=== PATIENT | female | born 1960 | race Caucasian/White ===

== ENCOUNTER 2021-04-30 19:22 | Emergency (ER) | payer BC ==
[~2021-04-30] VITALS: Ht 160 cm; Wt 63.0 kg
[2021-04-30 19:48] VITALS: BP 134/83
--- OUTSIDE RECORDS SUMMARY | 2021-04-30 21:37 | CCD ---
Author [facility] Organization [facility] Address [address], [place] [id number] Phone Care Team Providers Care Long Lines Operator Name Role Phone Hilton Grissom Unavailable Allergies, Adverse Reactions, Alerts Codeine Phosphate Reaction: "freaked out" 11/15/2010 Tegretol Reaction: increased confusion 09/07/2020 Medications * Continue: * Lynette DAMON * betamethasone dipropionate 0.05 % topical cream , Apply 1 dose topically Twice a day 03/18/2019 * Hilton Grissom MD * metoprolol tartrate 25 mg tablet , Take 1 tablet orally daily if needed 06/04/2019 * Kelechi DAMON * LevoxyL 100 mcg tablet , Take 1 tablet orally every day 01/06/2021 * Discontinued: * Blanche Villanueva RN * Calcium 500 + D 500 mg (1,250 mg)-200 unit tablet 09/09/2014 * Motrin 800 mg tablet 09/09/2014 * Missy Rico RN * Vitamin B-12 1,000 mcg tablet 09/07/2020 * Vitamin D3 25 mcg (1,000 unit) capsule 09/07/2020 * Olivia 180 mg tablet 09/14/2012 * Nasacort AQ 55 mcg nasal spray aerosol 07/07/2014 * Proventil HFA 90 mcg/actuation aerosol inhaler 01/12/2018 * omeprazole 20 mg capsule,delayed release 09/07/2020 * Nicotrol NS 10 mg/mL nasal spray 01/12/2018 * Chantix Continuing Month Box 1 mg tablet 01/12/2018 * amoxicillin 875 mg tablet 01/12/2018 * cephALEXin 250 mg capsule 09/07/2020 * TEGretol XR 200 mg tablet,extended release 09/07/2020 * * LevoxyL 112 mcg tablet 01/23/2013 * predniSONE 10 mg tablet , Take 3 tablets orally every day as directed 08/13/2013 * predniSONE 10 mg tablet , Take 3 tablets orally every day 11/09/2013 * triamcinolone acetonide 55 mcg nasal spray aerosol 09/20/2016 * Tamiflu 75 mg capsule 09/20/2016 * Henrietta Sandy * Advair Diskus 250 mcg-50 mcg/dose powder for inhalation 06/01/2020 * Zoloft 25 mg tablet 06/01/2020 * Caridad Nunes MD * amoxicillin 875 mg-potassium clavulanate 125 mg tablet , Take 1 tablet orally Every 12 hours 07/06/2011 * Hilton Grissom MD * LevoxyL 100 mcg tablet , Take 1 tablet orally every day 08/09/2014 * LevoxyL 100 mcg tablet 06/22/2017 * Lynette Weems RPA-C * LevoxyL 125 mcg tablet 05/20/2019 * ROSEY CASPER * mupirocin 2 % topical ointment 01/31/2020 * Kelechi Hassan RPA-C * LevoxyL 112 mcg tablet 01/06/2021 * Pre-existing: * Motrin IB 200 mg tablet , Take 3 tablet orally q am * Multivitamin Gummies 200 mcg chewable tablet Problems Addressed During This Encounter Family history of malignant neoplasm of breast (Z80.3) 04/27/2015 Nicotine dependence, unspecified, uncomp licated (F17.200) 09/20/2016 Other benign neoplasm of skin, unspecifi ed (D23.9) 01/12/2018 Supraventricular tachycardia (I47.1) Other amnesia (R41.3) 01/16/2020 Acute cystitis without hematuria (N30.00 ) 05/07/2020 Dermatitis, unspecified (L30.9) 09/07/2020 Pre-existing: Hypothyroidism, unspecified (E03.9) Allergic rhinitis, cause unspecified (477.9) ASTHMA (493.90) Ovarian cyst (620.2) Comments: Biilateral Hives (708.9) Comments: Frequent Hematuria, microscopic (599.72) Comments: Work up 2002 Deficiency of other specified B group vitamins (E53.8) Resolved: Sinusitis, Acute (461.9) 06/22/2017 OTODYNIA (388.70) 06/22/2017 Tobacco use disorder (305.1) 05/07/2020 ABDOMINAL PAIN NOS (789.00) 06/22/2017 HEMATOCHEZIA (578.1) 06/22/2017 CPE adult (V70.0) 06/22/2017 URI (460) 06/22/2017 Acute serous otitis media (381.01) 05/07/2020 Encounter for gynecological examination (general) (routine) without abnormal findings (Z01.419) 05/07/2020 Acute bronchitis, unspecified (J20.9) 06/22/2017 Dyshidrosis [pompholyx] (L30.1) 05/07/2020 Major depressive disorder, single episode, unspecified (F32.9) 05/07/2020 Hypokalemia (E87.6) 05/07/2020 Results TSH,ULTRASENSITIVE @: 0.439 mIU/L 05/23 Foot/ankle neuro exam: peripheral pulse s are palpable 09/20/2016 TSH,ULTRASENSITIVE @: 2.97 mIU/L 017 CHOLESTEROL @: 214 MG/DL 09/26/2016 TRIGLYCERIDE @: 106 MG/DL 09/26/2016 HDL CHOLESTEROL @: 95 MG/DL 09/26/2016 CHOL/HDL RATIO: 2.3 RATIO 09/26/2016 LDL CHOL (CALC): 98 MG/DL 09/26/2016 VITAMIN B12 @: >2000 09/26/2016 SODIUM: 140 mmol/L 09/26/2016 Potassium: 4.6 mmol/L 09/26/2016 CHLORIDE: 104 mmol/L 09/26/2016 CO2: 28 mmol/L 09/26/2016 Anion Gap: 8 mmol/L 09/26/2016 Creatinine: 1.09 MG/DL 09/26/2016 UREA NITROGEN: 22 MG/DL 09/26/2016 BUN/CREAT RATIO: 20.2 RATIO 09/26/2016 Glucose: 93 MG/DL 09/26/2016 CALCIUM: 8.9 MG/DL 09/26/2016 TOTAL PROTEIN: 7.1 g/dL 09/26/2016 Albumin: 4 g/dL 09/26/2016 GLOBULIN: 3.1 g/dL 09/26/2016 ALB/GLOB RATIO: 1.3 RATIO 09/26/2016 ALKALINE PHOSPHATASE: 89 U/L 09/26/2016 BILIRUBIN,TOTAL: 0.3 MG/DL 09/26/2016 AST (SGOT): 14 U/L 09/26/2016 ALT (SGPT): 15 U/L 09/26/2016 GFR : 52 ml/min/1.73m2 09/26/2016 GFR ( AMER): >60 09/26/2016 25 HYDROXY VIT D @: 29 ng/mL 09/26/2016 WBC: 7.8 10*3/uL 09/26/2016 RBC: 4.35 10*6/uL 09/26/2016 HGB: 13.7 g/dL 09/26/2016 HCT: 40.4 % 09/26/2016 MCV: 92.8 fL 09/26/2016 MCH: 31.5 pg 09/26/2016 MCHC: 34 g/dL 09/26/2016 RDW: 13.6 % 09/26/2016 PLT: 315 10*3/uL 09/26/2016 MPV: 7.3 fL 09/26/2016 NEUT %: 36.8 % 09/26/2016 LYMPH %: 36.9 % 09/26/2016 MONO %: 9.1 % 09/26/2016 EOS %: 15.8 % 09/26/2016 BASO %: 1.4 % 09/26/2016 NEUT #: 2.9 10*3/uL 09/26/2016 LYMPH #: 2.9 10*3/uL 09/26/2016 MONO #: 0.7 10*3/uL 09/26/2016 EOS #: 1.2 10*3/uL 09/26/2016 BASO #: 0.1 10*3/uL 09/26/2016 TSH,ULTRASENSITIVE @: 1.13 mIU/L 2016 SODIUM: 142 mmol/L 06/05/2017 Potassium: 3.7 mmol/L 06/05/2017 CHLORIDE: 106 mmol/L 06/05/2017 CO2: 26 mmol/L 06/05/2017 Anion Gap: 10 mmol/L 06/05/2017 UREA NITROGEN: 14 MG/DL 06/05/2017 Creatinine: 1.04 MG/DL 06/05/2017 BUN/CREAT RATIO: 13.5 RATIO 06/05/2017 Glucose: 86 MG/DL 06/05/2017 CALCIUM: 8.5 MG/DL 06/05/2017 TOTAL PROTEIN: 6.8 g/dL 06/05/2017 Albumin: 4 g/dL 06/05/2017 GLOBULIN: 2.8 g/dL 06/05/2017 ALB/GLOB RATIO: 1.4 RATIO 06/05/2017 ALKALINE PHOSPHATASE: 96 U/L 06/05/2017 BILIRUBIN,TOTAL: 0.3 MG/DL 06/05/2017 AST (SGOT): 15 U/L 06/05/2017 ALT (SGPT): 13 U/L 06/05/2017 GFR : 55 ml/min/1.73m2 06/05/2017 GFR ( AMER): >60 06/05/2017 WBC: 6.9 10*3/uL 06/05/2017 RBC: 4.12 10*6/uL 06/05/2017 HGB: 13.1 g/dL 06/05/2017 HCT: 38 % 06/05/2017 MCV: 92.2 fL 06/05/2017 MCH: 31.7 pg 06/05/2017 MCHC: 34.4 g/dL 06/05/2017 RDW: 13.2 % 06/05/2017 PLT: 291 10*3/uL 06/05/2017 MPV: 7.3 fL 06/05/2017 NEUT %: 35.9 % 06/05/2017 LYMPH %: 36.3 % 06/05/2017 MONO %: 8 % 06/05/2017 EOS %: 18.6 % 06/05/2017 BASO %: 1.2 % 06/05/2017 NEUT #: 2.5 10*3/uL 06/05/2017 LYMPH #: 2.5 10*3/uL 06/05/2017 MONO #: 0.5 10*3/uL 06/05/2017 EOS #: 1.3 10*3/uL 06/05/2017 BASO #: 0.1 10*3/uL 06/05/2017 FREE THYROXINE @: 1.46 ng/dL 06/26/2017 TRIIODOTHYRONIN,FREE@: 3 pg/mL 06/26/20 17 VITAMIN B12 @: >2000 06/26/2017 25 HYDROXY VIT D @: 36 ng/mL 06/26/2017 TSH,ULTRASENSITIVE @: 0.158 mIU/L 7/22/ 2019 FREE THYROXINE @: 1.27 ng/dL 01/28/2019 VITAMIN B12 @: >2000 01/28/2019 SODIUM: 139 mmol/L 01/28/2019 Potassium: 3.9 mmol/L 01/28/2019 CHLORIDE: 106 mmol/L 01/28/2019 CO2: 25 mmol/L 01/28/2019 Anion Gap: 8 mmol/L 01/28/2019 UREA NITROGEN: 13 MG/DL 01/28/2019 Creatinine: 1.2 MG/DL 01/28/2019 BUN/CREAT RATIO: 10.8 RATIO 01/28/2019 Glucose: 108 MG/DL 01/28/2019 CALCIUM: 8.7 MG/DL 01/28/2019 TOTAL PROTEIN: 7.1 g/dL 01/28/2019 Albumin: 4.1 g/dL 01/28/2019 GLOBULIN: 3 g/dL 01/28/2019 ALB/GLOB RATIO: 1.4 RATIO 01/28/2019 ALKALINE PHOSPHATASE: 110 U/L 01/28/2019 BILIRUBIN,TOTAL: 0.4 MG/DL 01/28/2019 AST (SGOT): 9 U/L 01/28/2019 ALT (SGPT): 15 U/L 01/28/2019 GFR : 46 ml/min/1.73m2 01/28/2019 GFR ( AMER): 56 ml/min/1.73m2 25 HYDROXY VIT D @: 34 ng/mL 01/28/2019 WBC: 5.4 10*3/uL 01/28/2019 RBC: 4.13 10*6/uL 01/28/2019 HGB: 13.2 g/dL 01/28/2019 HCT: 38.2 % 01/28/2019 MCV: 92.5 fL 01/28/2019 MCH: 31.9 pg 01/28/2019 MCHC: 34.4 g/dL 01/28/2019 RDW: 13.6 % 01/28/2019 PLT: 301 10*3/uL 01/28/2019 MPV: 7.2 fL 01/28/2019 NEUT %: 43 % 01/28/2019 LYMPH %: 40.7 % 01/28/2019 MONO %: 9 % 01/28/2019 EOS %: 6.5 % 01/28/2019 BASO %: 0.8 % 01/28/2019 NEUT #: 2.3 10*3/uL 01/28/2019 LYMPH #: 2.2 10*3/uL 01/28/2019 MONO #: 0.5 10*3/uL 01/28/2019 EOS #: 0.4 10*3/uL 01/28/2019 BASO #: 0 10*3/uL 01/28/2019 TRIIODOTHYRONIN,FREE@: 2.6 pg/mL 019 TSH,ULTRASENSITIVE @: 0.144 mIU/L 2018 FREE THYROXINE @: 1.31 ng/dL 05/13/2019 TRIIODOTHYRONIN,FREE@: 2.4 pg/mL 019 TSH,ULTRASENSITIVE @: 1.11 mIU/L 07/15/19 20 HEMOGLOBIN A1C @: 5.4 % 01/17/2020 EST AVERAGE GLUCOSE: 108 MG/DL 0 Potassium: 3.3 mmol/L 01/17/2020 TSH,ULTRASENSITIVE @: 0.906 mIU/L 2019 SODIUM: 137 mmol/L 01/17/2020 Anion Gap: 9 mmol/L 01/17/2020 CHLORIDE: 102 mmol/L 01/17/2020 CO2: 26 mmol/L 01/17/2020 UREA NITROGEN: 11 MG/DL 01/17/2020 Creatinine: 0.94 MG/DL 01/17/2020 Glucose: 72 MG/DL 01/17/2020 BUN/CREAT RATIO: 11.7 RATIO 01/17/2020 CALCIUM: 8.7 MG/DL 01/17/2020 TOTAL PROTEIN: 6.8 g/dL 01/17/2020 Albumin: 3.7 g/dL 01/17/2020 GLOBULIN: 3.1 g/dL 01/17/2020 ALB/GLOB RATIO: 1.2 RATIO 01/17/2020 ALKALINE PHOSPHATASE: 94 U/L 01/17/2020 BILIRUBIN,TOTAL: 0.4 MG/DL 01/17/2020 AST (SGOT): 16 U/L 01/17/2020 ALT (SGPT): 15 U/L 01/17/2020 GFR : >60 01/17/2020 GFR ( AMER): >60 01/17/2020 WBC: 6.6 10*3/uL 01/17/2020 RBC: 4.22 10*6/uL 01/17/2020 HGB: 13.4 g/dL 01/17/2020 HCT: 39.7 % 01/17/2020 RDW: 13.1 % 01/17/2020 MCHC: 33.7 g/dL 01/17/2020 MCH: 31.7 pg 01/17/2020 MCV: 94.1 fL 01/17/2020 PLT: 331 10*3/uL 01/17/2020 MPV: 7.5 fL 01/17/2020 NEUT %: 45.1 % 01/17/2020 LYMPH %: 42.5 % 01/17/2020 MONO %: 6.6 % 01/17/2020 EOS %: 5 % 01/17/2020 BASO %: 0.8 % 01/17/2020 NEUT #: 3 10*3/uL 01/17/2020 LYMPH #: 2.8 10*3/uL 01/17/2020 MONO #: 0.4 10*3/uL 01/17/2020 EOS #: 0.3 10*3/uL 01/17/2020 TSH,ULTRASENSITIVE @: 0.696 mIU/L 2019 BASO #: 0.1 10*3/uL 01/17/2020 Potassium: 3.7 mmol/L 01/17/2020 SODIUM: 138 mmol/L 01/17/2020 CHLORIDE: 103 mmol/L 01/17/2020 Creatinine: 1.07 MG/DL 01/17/2020 Anion Gap: 12 mmol/L 01/17/2020 CO2: 23 mmol/L 01/17/2020 UREA NITROGEN: 11 MG/DL 01/17/2020 BUN/CREAT RATIO: 10.3 RATIO 01/17/2020 Glucose: 103 MG/DL 01/17/2020 CALCIUM: 9.1 MG/DL 01/17/2020 TOTAL PROTEIN: 6.9 g/dL 01/17/2020 Albumin: 3.8 g/dL 01/17/2020 GLOBULIN: 3.1 g/dL 01/17/2020 ALB/GLOB RATIO: 1.2 RATIO 01/17/2020 ALKALINE PHOSPHATASE: 94 U/L 01/17/2020 BILIRUBIN,TOTAL: 0.4 MG/DL 01/17/2020 AST (SGOT): 17 U/L 01/17/2020 ALT (SGPT): 15 U/L 01/17/2020 GFR : 53 ml/min/1.73m2 01/17/2020 GFR ( AMER): >60 01/17/2020 VITAMIN B12 @: >2000 01/17/2020 LYME IGM/IGG AB @: NEGATIVE 01/31/2020 COVID IGG SEROLOGY @: NEGATIVE 0 SARS COV2 SOURCE: NASOPHARYNGEAL 020 TSH,ULTRASENSITIVE @: 0.154 mIU/L 2020 Potassium: 3.6 mmol/L 01/05/2021 SODIUM: 139 mmol/L 01/05/2021 CHLORIDE: 104 mmol/L 01/05/2021 CO2: 24 mmol/L 01/05/2021 Anion Gap: 11 mmol/L 01/05/2021 UREA NITROGEN: 15 MG/DL 01/05/2021 Creatinine: 0.82 MG/DL 01/05/2021 BUN/CREAT RATIO: 18.3 RATIO 01/05/2021 Glucose: 98 MG/DL 01/05/2021 CALCIUM: 9.4 MG/DL 01/05/2021 TOTAL PROTEIN: 7.8 g/dL 01/05/2021 Albumin: 4.4 g/dL 01/05/2021 GLOBULIN: 3.4 g/dL 01/05/2021 ALB/GLOB RATIO: 1.3 RATIO 01/05/2021 ALKALINE PHOSPHATASE: 77 U/L 01/05/2021 BILIRUBIN,TOTAL: 0.5 MG/DL 01/05/2021 AST (SGOT): 12 U/L 01/05/2021 ALT (SGPT): 16 U/L 01/05/2021 GFR : >60 01/05/2021 GFR ( AMER): >60 01/05/2021 VITAMIN B12 @: 637 pg/mL 01/05/2021 WBC: 6.6 10*3/uL 01/05/2021 RBC: 4.59 10*6/uL 01/05/2021 HGB: 14.6 g/dL 01/05/2021 HCT: 43.5 % 01/05/2021 MCV: 94.8 fL 01/05/2021 MCH: 31.8 pg 01/05/2021 MCHC: 33.6 g/dL 01/05/2021 RDW: 13.2 % 01/05/2021 PLT: 319 10*3/uL 01/05/2021 MPV: 7.6 fL 01/05/2021 NEUT %: 52.9 % 01/05/2021 LYMPH %: 30.9 % 01/05/2021 MONO %: 6.4 % 01/05/2021 EOS %: 8.9 % 01/05/2021 BASO %: 0.9 % 01/05/2021 NEUT #: 3.5 10*3/uL 01/05/2021 LYMPH #: 2 10*3/uL 01/05/2021 MONO #: 0.4 10*3/uL 01/05/2021 EOS #: 0.6 10*3/uL 01/05/2021 BASO #: 0.1 10*3/uL 01/05/2021 Procedures Performed and Ordered Today * Vaccine registry consented 09/20/2016 * HIV Test Offered 09/20/2016 * Hepatitis C test offered 09/20/2016 * Smoke/tobacco counseling 3-10 09/20/2016 * Smoke/tobacco counseling 3-10 12/16/2016 * Colonoscopy MD Jamari/repeat 10 yrs 10/09/2017 * HIE Consented YES 01/12/2018 * * Immunization : Tdap Adacel 09/20/2016 Vital signs Body Temperature: Heart Rate: Respiratory Rate: BP: Height: Weight: BMI: 97.6F 09/07/2020 80 beats per minute 16 breaths per minute 09/20/2016 120/64 mmHg 09/07/2020 5ft, 2in 09/07/2020 147lbs 09/07/2020 26.455 09/07/2020 Immunizations FLU SHOT >3YO (Fluzone) 03/31/2010 FLU SHOT >3YO (Fluzone) 04/28/2008 FLU SHOT >3YO (Fluzone) 06/09/2006 Novel [id number], NASAL 2008 FLU SHOT >3YO (Fluzone) 04/13/2011 FLU SHOT >3YO (Fluzone) 04/25/2007 FLU QUAD 0.5ml multi dose VIAL 04/27 Tdap Adacel 09/20/2016 Tdap (ADULT) >6 09/20/2016 Td Adult 06/21/1994 Tetanus and Diphtheria Toxoids, Adsorbed 09/26/2005 DTaP 1962 DTaP 01/28/1963 DTaP 03/06/1963 DTaP 02/25/1964 DTaP 08/30/1966 Measles Immunization 08/24/1965 Mumps Immunization 09/02/1968 Polio -Oral ORIMUNE 1962 Polio -Oral ORIMUNE 01/28/1963 Polio -Oral ORIMUNE 07/30/1963 Polio -Oral ORIMUNE 02/25/1964 Polio -Oral ORIMUNE 04/28/1964 Polio -Oral ORIMUNE 11/10/1966 Polio -Oral ORIMUNE 09/08/1966 Measles Immunization 09/10/1976 Rubella Immunization 07/28/1968 RUBELLA IGG AB @ 03/01/1989 Td Adult 01/25/1980 Td Adult 11/14/1972 Flu QUAD PF 06/21/2016 FLUCELVAX ccIIV4 05/01/2017 Pneumococcal Adult or Imuno. 03/25/20 Flu QUAD PF 03/25/2018 FLUCELVAX ccIIV4 05/21/2019 FLUCELVAX ccIIV4 03/14/2020 Social History Smoking Status: Current every day smoker . 09/07/2020 Started using tobacco: 1979 Reason for Referral Functional Status Plan of Treatment Appointments [facility] ed: May 102002, 4:30 PM, FRANTZ Hannah Monday, May 09, 2005, 3:45 PM, FRANTZ Hannah Wednesday, August 29, 2007, 8:30 AM, Hilton Grissom MD Wednesday, September 12, 2007, 1:30 PM, Hilton Grissom MD Monday, November 19, 2007, 3:30 PM, Hilton Grissom MD Wednesday, December 05, 2007, 9:30 AM, Caridad Nunes MD Friday, December 21, 2007, 11:00 AM, Hilton Grissom MD Wednesday, March 19, 2008, 5:00 PM, Hilton Grissom MD Monday, April 28, 2008, 4:45 PM, FRANTZ Hannah Tuesday, July 08, 2008, 5:00 PM, Norman Perez MD Monday, July 28, 2008, 10:00 AM, Caridad Nunes MD Friday, August 15, 2008, 2:00 PM, Hilton Grissom MD August, 10:30 AM, Hilton Grissom MD Monday, December 08, 2008, 5:00 PM, Hilton Grissom MD Monday, December 22, 2008, 1:30 PM, Hilton Grissom MD March, 4:30 PM, Hilton Grissom MD Monday, June 22, 2009, 10:30 AM, Norman Perez MD , June 25, 2009, 10:00 AM, Hilton Grissom MD Wednesday, July 15, 2009, 1:45 PM, OLD zNURSE Friday, October 23, 2009, 10:15 AM, Hilton Grissom MD December, 11:00 AM, Hilton Grissom MD Wednesday, March 31, 2010, 3:30 PM, Hilton Grissom MD Wednesday, June 09, 2010, 2:15 PM, Hilton Grissom MD , October 07, 2010, 9:30 AM, Caridad Nunes MD Monday, November 15, 2010, 3:00 PM, Hilton Grissom MD Wednesday, April 13, 2011, 2:15 PM, OLD zNURSE Monday, June 06, 2011, 9:30 AM, Caridad Nunes MD , September 15, 2011, 1:30 PM, Hilton Grissom MD Friday, September 14, 2012, 10:00 AM, Norman Perez MD Monday, November 12, 2012, 3:00 PM, Hilton Grissom MD Friday, August 09, 2013, 1:30 PM, Norman Perez MD Wednesday, November 06, 2013, 11:00 AM, Norman Perez MD Monday, May 19, 2014, 5:30 PM, Hilton Grissom MD Tuesday, September 09, 2014, 10:45 AM, [facility] Monday, April 27, 2015, 5:00 PM, Hilton Grissom MD Tuesday, September 20, 2016, 1:30 PM, Hilton Grissom MD Tuesday, September 20, 2016, 1:30 PM, Hilton Grissom MD Tuesday, September 20, 2016, 2:00 PM, Hilton Grissom MD Friday, December 16, 2016, 10:30 AM, Hilton Grissom MD June, 1:30 PM, Hilton Grissom MD Friday, January 12, 2018, 11:00 AM, Hilton Grissom MD Monday, January 28, 2019, 1:30 PM, Kelechi MACEDO Monday, March 18, 2019, 1:30 PM, Kelechi MACEDO Tuesday, June 04, 2019, 3:00 PM, Hilton Grissom MD January, 3:45 PM, Hilton Grissom MD , January 16, 2020, 5:30 PM, Hilton Grissom MD Friday, January 17, 2020, 10:45 AM, Friday, January 31, 2020, 11:00 AM, Kelechi MACEDO April, 3:00 PM, Lynette MACEDO May, 1:30 PM, Hilton Grissom MD Monday, June 01, 2020, 10:00 AM, Kelechi MACEDO Monday, September 07, 2020, 1:30 PM, Lynette MACEDO Payers Insurance Policy Type Po licy ID Relation Subscriber Expi ration BLUEPOINT/BLUE PREFERRED/ONPOINT [employer] [id number] ALBA PAYAN NELA 10/07/2011 [employer]UE CROSS BLUE [employer]IELD [place] [employer] [id number] Self DERRICK ROPER 07/15/2004 BLUE CROSS BLUE SHIELD [place] [employer] [id number] Self DERRICK ROPER 10/22/2004 BLUE CROSS BLUE SHI[employer] [place] [employer] [id number] Self DERRICK ROPER 07/09/2008 BLUEPOINT/BLUE PREFERRED/ONPOINT [employer] [id number] ALBA PAYAN NELA 07/09/2014 BLUE CROSS BLUE SHIELD [place] [employer] [id number] ALBA CE NELA [employer] Commercial [employer] [id number] ALAN NELA 07/09 Encounters Office/Outpatient Vi sit, Est 09/07/2020 Office Visit - Level 3 06/01/2020 Office Visit - Level 3 05/21/2020 Diagnoses Other amnesia Office/Outpatient Vi sit, Est 05/19/2020 Diagnoses Other amnesia Office Visit - Level 3 05/07/2020 Office/Outpatient Vi sit, Est 01/31/2020 Office/Outpatient Vi sit, Est 01/16/2020 Diagnoses Other amnesia Deficiency of other specified B group vitamins Office Visit - Level 3 01/09/2020 Diagnoses Major depressive disorder, single episode, unspecified Office/Outpatient Vi sit, Est 06/04/2019 Diagnoses Supraventricular tachycardia Hypothyroidism, unspecified Office Visit - Level 3 03/18/2019 Office Visit - Level 3 01/28/2019 Office/Outpatient Vi sit, Est 01/12/2018 Diagnoses Other benign neoplasm of skin, unspecified Office Visit - Level 3 06/22/2017 Diagnoses Hypothyroidism, unspecified Deficiency of other specified B group vitamins Office Visit - Level 3 12/16/2016 Diagnoses Acute bronchitis, unspecified Preventive Visit, Es t, 40-64 09/20/2016 Diagnoses Nicotine dependence, unspecified, uncomplicated Encounter for gynecological examination (general) (routine) without abnormal findings Office/Outpatient Vi sit, Est 04/27/2015 Diagnoses Family history of malignant neoplasm of breast Hypothyroidism, unspecified Office Visit - Level 3 11/06/2013 Office Visit - Level 3 08/09/2013 Preventive Visit, Es t, 40-64 11/12/2012 Office Visit - Level 3 09/14/2012 Office/Outpatient Vi sit, Est 09/15/2011 Office Visit - Level 3 06/06/2011
--- OUTSIDE RECORDS SUMMARY | 2021-04-30 21:38 | CCD ---
Author Author [facility] Organization [facility] Address Unknown Phone Unavailable Care Team Providers Care Casino Cage Supervisor Name Role Phone ESTHER HAAS MD Unavailable Unavailable ESTHER HAAS MD Unavailable Unavailable ESTHER HAAS MD Unavailable Unavailable ESTHER HAAS MD Unavailable Unavailable ESTHER HAAS MD Unavailable Unavailable ESTHER HAAS MD Unavailable Unavailable ESTHER HAAS MD Unavailable Unavailable ESTHER HAAS MD Unavailable Unavailable ESTHER HAAS MD Unavailable Unavailable ESTHER HAAS MD Unavailable Unavailable ESTHER HAAS MD Unavailable Unavailable ESTHER HAAS MD Unavailable Unavailable ESTHER HAAS MD Unavailable Unavailable ESTHER HAAS MD Unavailable Unavailable ESTHER HAAS MD Unavailable Unavailable ESTHER HAAS MD Unavailable Unavailable ESTHER HAAS MD Unavailable Unavailable ESTHER HAAS MD Unavailable Unavailable ESTHER HAAS MD Unavailable Unavailable ESTHER HAAS MD Unavailable Unavailable ESTHER HAAS MD Unavailable Unavailable ESTHER HAAS MD Unavailable Unavailable ESTHER HAAS MD Unavailable Unavailable ESTHER HAAS MD Unavailable Unavailable ESTHER HAAS MD Unavailable Unavailable ESTHER HAAS MD Unavailable Unavailable ESTHER HAAS MD Unavailable Unavailable ESTHER HAAS MD Unavailable Unavailable ESTHER HAAS MD Unavailable Unavailable ESTHER HAAS MD Unavailable Unavailable ESTHER HAAS MD Unavailable Unavailable ESTHER HAAS MD Unavailable Unavailable ESTHER HAAS MD Unavailable Unavailable HAAS, ESTHER MD Unavailable Unavailable HAAS, ESTHER MD Unavailable Unavailable HAAS, ESTHER MD Unavailable Unavailable HAAS, ESTHER MD Unavailable Unavailable HAAS, ESTHER MD Unavailable Unavailable HAAS, ESTHER MD Unavailable Unavailable HAAS, ESTHER MD Unavailable Unavailable HAAS, ESTHER MD Unavailable Unavailable HAAS, ESTHER MD Unavailable Unavailable HAAS, ESTHER MD Unavailable Unavailable HAAS, ESTHER MD Unavailable Unavailable HAAS, ESTHER MD Unavailable Unavailable HAAS, ESTHER MD Unavailable Unavailable HAAS, ESTHER MD Unavailable Unavailable HAAS, ESTHER MD Unavailable Unavailable HAAS, ESTHER MD Unavailable Unavailable HAAS, ESTHER MD Unavailable Unavailable HAAS, ESTHER MD Unavailable Unavailable HAAS, ESTHER MD Unavailable Unavailable HAAS, ESTHER MD Unavailable Unavailable HAAS, ESTHER MD Unavailable Unavailable HAAS, ESTHER MD Unavailable Unavailable HAAS, ESTHER MD Unavailable Unavailable HAAS, ESTHER MD Unavailable Unavailable HAAS, ESTHER MD Unavailable Unavailable HAAS, ESTHER MD Unavailable Unavailable HAAS, ESTHER MD Unavailable Unavailable HAAS, ESTHER MD Unavailable Unavailable HAAS, ESTHER MD Unavailable Unavailable HAAS, ESTHER MD Unavailable Unavailable HAAS, ESTHER MD Unavailable Unavailable HAAS, ESTHER MD Unavailable Unavailable HAAS, ESTHER MD Unavailable Unavailable HAAS, ESTHER MD Unavailable Unavailable HAAS, ESTHER MD Unavailable Unavailable HAAS, ESTHER MD Unavailable Unavailable HAAS, ESTHER MD Unavailable Unavailable HAAS, ESTHER MD Unavailable Unavailable HAAS, ESTHER MD Unavailable Unavailable HAAS, ESTHER MD Unavailable Unavailable HAAS, ESTHER MD Unavailable Unavailable HAAS, ESTHER MD Unavailable Unavailable HAAS, ESTHER MD Unavailable Unavailable HAAS, ESTHER MD Unavailable Unavailable DELCID, L FELIX RPA-C Unavailable Unavailable DELCID, L FELIX RPA-C Unavailable Unavailable DELCID, L FELIX RPA-C Unavailable Unavailable DELCID, L FELIX RPA-C Unavailable Unavailable DELCID, L FELIX RPA-C Unavailable Unavailable DELCID, L FELIX RPA-C Unavailable Unavailable DELCID, L FELIX RPA-C Unavailable Unavailable DELCID, L FELIX RPA-C Unavailable Unavailable DELCID, L FELIX RPA-C Unavailable Unavailable DELCID, L FELIX RPA-C Unavailable Unavailable DELCID, L FELIX RPA-C Unavailable Unavailable DELCID, L FELIX RPA-C Unavailable Unavailable DELCID, L FELIX RPA-C Unavailable Unavailable DELCID, L FELIX RPA-C Unavailable Unavailable DELCID, L FELIX RPA-C Unavailable Unavailable DELCID, L FELIX RPA-C Unavailable Unavailable DELCID, L FELIX RPA-C Unavailable Unavailable DELCID, L FELIX RPA-C Unavailable Unavailable DELCID, L FELIX RPA-C Unavailable Unavailable FARHANA, L FELIX RPA-C Unavailable Unavailable DELCID, L FELIX RPA-C Unavailable Unavailable DELCID, L FELIX RPA-C Unavailable Unavailable DELCID, L FELIX RPA-C Unavailable Unavailable Wood, Lynette PA Unavailable Unavailable Wood, Lynette PA Unavailable Unavailable Wood, Lynette PA Unavailable Unavailable Wood, Lynette PA Unavailable Unavailable Wood, Lynette PA Unavailable Unavailable Wood, Lynette PA Unavailable Unavailable Wood, Lynette PA Unavailable Unavailable Wood, Lynette PA Unavailable Unavailable Wood, Lynette PA Unavailable Unavailable Wood, Lynette PA Unavailable Unavailable Wood, Lynette PA Unavailable Unavailable Wood, Lynette PA Unavailable Unavailable Wood, Lynette PA Unavailable Unavailable Wood, Lynette PA Unavailable Unavailable Wood, Lynette PA Unavailable Unavailable Wood, Lynette PA Unavailable Unavailable Wood, Lynette PA Unavailable Unavailable Wood, Lynette PA Unavailable Unavailable Wood, Lynette PA Unavailable Unavailable Wood, Lynette PA Unavailable Unavailable Wood, Lynette PA Unavailable Unavailable Wood, Lynette PA Unavailable Unavailable Wood, Lynette PA Unavailable Unavailable Wood, Lynette PA Unavailable Unavailable Wood, Lynette PA Unavailable Unavailable Wood, Lynette PA Unavailable Unavailable Wood, Lynette PA Unavailable Unavailable Wood, Lynette PA Unavailable Unavailable Wood, Lynette PA Unavailable Unavailable Wood, Lynette PA Unavailable Unavailable Wood, Lynette PA Unavailable Unavailable Wood, Lynette PA Unavailable Unavailable Wood, Lynette PA Unavailable Unavailable Wood, Lynette PA Unavailable Unavailable Wood, Lynette PA Unavailable Unavailable Wood, Lynette PA Unavailable Unavailable Wood, Lynette PA Unavailable Unavailable Wood, Lynette PA Unavailable Unavailable Wood, Lynette PA Unavailable Unavailable Wood, Lynette PA Unavailable Unavailable Wood, Lynette PA Unavailable Unavailable Wood, Lynette PA Unavailable Unavailable Wood, Lynette PA Unavailable Unavailable Wood, Lynette PA Unavailable Unavailable Wood, Lynette PA Unavailable Unavailable Wood, Lynette PA Unavailable Unavailable Wood, Lynette PA Unavailable Unavailable Wood, Lynette PA Unavailable Unavailable Wood, Lynette PA Unavailable Unavailable Mo, Kelechi PA Unavailable Unavailable Mo, Kelechi PA Unavailable Unavailable Mo, Kelechi PA Unavailable Unavailable Mo, Kelechi PA Unavailable Unavailable Mo, Kelechi PA Unavailable Unavailable Mo, Kelechi PA Unavailable Unavailable Mo, Kelechi PA Unavailable Unavailable Mo, Kelechi PA Unavailable Unavailable Mo, Eklechi PA Unavailable Unavailable Mo, Kelechi PA Unavailable Unavailable Mo, Kelechi PA Unavailable Unavailable Mo, Kelechi PA Unavailable Unavailable Mo, Kelechi PA Unavailable Unavailable Mo, Kelechi PA Unavailable Unavailable Mo, Kelechi PA Unavailable Unavailable Mo, Kelechi PA Unavailable Unavailable Mo, Kelechi PA Unavailable Unavailable Mo, Kelechi PA Unavailable Unavailable Mo, Kelechi PA Unavailable Unavailable Mo, Kelechi PA Unavailable Unavailable Mo, Kelechi PA Unavailable Unavailable Mo, Kelechi PA Unavailable Unavailable Mo, Kelechi PA Unavailable Unavailable Mo, Kelechi PA Unavailable Unavailable Mo, Kelechi PA Unavailable Unavailable Mo, Kelechi PA Unavailable Unavailable Mo, Kelechi PA Unavailable Unavailable Mo, Kelechi PA Unavailable Unavailable Mo, Kelechi PA Unavailable Unavailable Mo, Kelechi PA Unavailable Unavailable Mo, Kelechi PA Unavailable Unavailable Mo, Kelechi PA Unavailable Unavailable Mo, Kelechi PA Unavailable Unavailable Mo, Kelechi PA Unavailable Unavailable Mo, Kelechi PA Unavailable Unavailable Mo, Kelechi PA Unavailable Unavailable Mo, Kelechi PA Unavailable Unavailable Mo, Kelechi PA Unavailable Unavailable Mo, Kelechi PA Unavailable Unavailable Mo, Kelechi PA Unavailable Unavailable Mo, Kelechi PA Unavailable Unavailable HAAS, ESTHER MD Unavailable Unavailable HAAS, ESTHER MD Unavailable Unavailable HAAS, ESTHER MD Unavailable Unavailable HAAS, ESTHER MD Unavailable Unavailable HAAS, ESTHER MD Unavailable Unavailable HAAS, ESTHER MD Unavailable Unavailable HAAS, ESTHER MD Unavailable Unavailable HAAS, ESTHER MD Unavailable Unavailable HAAS, ESTHER MD Unavailable Unavailable HAAS, ESTHER MD Unavailable Unavailable HAAS, ESTHER MD Unavailable Unavailable HAAS, ESTHER MD Unavailable Unavailable HAAS, ESTHER MD Unavailable Unavailable HAAS, ESTHER MD Unavailable Unavailable HAAS, ESTHER MD Unavailable Unavailable HAAS, ESTHER MD Unavailable Unavailable HAAS, ESTHER MD Unavailable Unavailable HAAS, ESTHER MD Unavailable Unavailable HAAS, ESTHER MD Unavailable Unavailable HAAS, ESTHER MD Unavailable Unavailable HAAS, ESTHER MD Unavailable Unavailable HAAS, ESTHER MD Unavailable Unavailable HAAS, ESTHER MD Unavailable Unavailable HAAS, ESTHER MD Unavailable Unavailable HAAS, ESTHER MD Unavailable Unavailable HAAS, ESTHER MD Unavailable Unavailable HAAS, ESTHER MD Unavailable Unavailable HAAS, ESTHER MD Unavailable Unavailable HAAS, ESTHER MD Unavailable Unavailable HAAS, ESTHER MD Unavailable Unavailable HAAS, ESTHER MD Unavailable Unavailable HAAS, ESTHER MD Unavailable Unavailable HAAS, ESTHER MD Unavailable Unavailable HAAS, ESTHER MD Unavailable Unavailable HAAS, ESTHER MD Unavailable Unavailable HAAS, ESTHER MD Unavailable Unavailable HAAS, ESTHER MD Unavailable Unavailable HAAS, ESTHER MD Unavailable Unavailable HAAS, ESTHER MD Unavailable Unavailable HAAS, ESTHER MD Unavailable Unavailable HAAS, ESTHER MD Unavailable Unavailable HAAS, ESTHER MD Unavailable Unavailable HAAS, ESTHER MD Unavailable Unavailable HAAS, ESTHER MD Unavailable Unavailable HAAS, ESTHER MD Unavailable Unavailable HAAS, ESTHER MD Unavailable Unavailable HAAS, ESTHER MD Unavailable Unavailable HAAS, ESTHER MD Unavailable Unavailable HAAS, ESTHER MD Unavailable Unavailable HAAS, ESTHER MD Unavailable Unavailable HAAS, ESTHER MD Unavailable Unavailable HAAS, ESTHER MD Unavailable Unavailable HAAS, ESTHER MD Unavailable Unavailable HAAS, ESTHER MD Unavailable Unavailable HAAS, ESTHER MD Unavailable Unavailable HAAS, ESTHER MD Unavailable Unavailable HAAS, ESTHER MD Unavailable Unavailable HAAS, ESTHER MD Unavailable Unavailable HAAS, ESTHER MD Unavailable Unavailable HAAS, ESTHER MD Unavailable Unavailable HAAS, ESTHER MD Unavailable Unavailable HAAS, ESTHER MD Unavailable Unavailable HAAS, ESTHER MD Unavailable Unavailable HAAS, ESTHER MD Unavailable Unavailable HAAS, ESTHER MD Unavailable Unavailable HAAS, ESTHER MD Unavailable Unavailable HAAS, ESTHER MD Unavailable Unavailable HAAS, ESTHER MD Unavailable Unavailable HAAS, ESTHER MD Unavailable Unavailable HAAS, ESTHER MD Unavailable Unavailable HAAS, ESTHER MD Unavailable Unavailable HAAS, ESTHER MD Unavailable Unavailable HAAS, ESTHER MD Unavailable Unavailable HAAS, ESTHER MD Unavailable Unavailable HAAS, ESTHER MD Unavailable Unavailable HAAS, ESTHER MD Unavailable Unavailable HAAS, ESTHER MD Unavailable Unavailable LYNNE, Constanza HERNANDEZ MD Unavailable Unavailable LYNNE, Constanza HERNANDEZ MD Unavailable Unavailable LYNNE, Constanza HERNANDEZ MD Unavailable Unavailable LYNNE, Constanza HERNANDEZ MD Unavailable Unavailable LYNNE, Constanza HERNANDEZ MD Unavailable Unavailable LYNNE, Constanza HERNANDEZ MD Unavailable Unavailable LYNNE, Constanza HERNANDEZ MD Unavailable Unavailable LYNNE, Constanza HERNANDEZ MD Unavailable Unavailable LYNNE, Constanza HERNANDEZ MD Unavailable Unavailable LYNNE, Constanza HERNANDEZ MD Unavailable Unavailable LYNNE, Constanza HERNANDEZ MD Unavailable Unavailable LYNNE, Constanza HERNANDEZ MD Unavailable Unavailable LYNNE, Constanza HERNANDEZ MD Unavailable Unavailable YLNNE, Constanza HERNANDEZ MD Unavailable Unavailable LYNNE, Constanza HERNANDEZ MD Unavailable Unavailable LYNNE, Constanza HERNANDEZ MD Unavailable Unavailable LYNNE, Constanza HERNANDEZ MD Unavailable Unavailable LYNNE, Constanza HERNANDEZ MD Unavailable Unavailable LYNNE, Constanza HERNANDEZ MD Unavailable Unavailable LYNNE, Constanza HERNANDEZ MD Unavailable Unavailable LYNNE, Constanza HERNANDEZ MD Unavailable Unavailable LYNNE, Constanza HERNANDEZ MD Unavailable Unavailable LYNNE, Constanza HERNANDEZ MD Unavailable Unavailable LYNNE, Constanza HERNANDEZ MD Unavailable Unavailable LYNNE, Constanza HERNANDEZ MD Unavailable Unavailable LYNNE, Constanza HERNANDEZ MD Unavailable Unavailable LYNNE, Constanza HERNANDEZ MD Unavailable Unavailable LYNNE, Constanza HERNANDEZ MD Unavailable Unavailable LYNNE, Constanza HERNANDEZ MD Unavailable Unavailable LYNNE, Constanza HERNANDEZ MD Unavailable Unavailable LYNNE, Constanza HERNANDEZ MD Unavailable Unavailable LYNNE, Constanza HERNANDEZ MD Unavailable Unavailable LYNNE, Constanza HERNANDEZ MD Unavailable Unavailable LYNNE, Constanza HERNANDEZ MD Unavailable Unavailable LYNNE, Constanza HERNANDEZ MD Unavailable Unavailable LYNNE, Constanza HERNANDEZ MD Unavailable Unavailable LYNNE, Constanza HERNANDEZ MD Unavailable Unavailable LYNNE, Constanza HERNANDEZ MD Unavailable Unavailable LYNNE, Constanza HERNANDEZ MD Unavailable Unavailable LYNNE, Constanza HERNANDEZ MD Unavailable Unavailable LYNNE, Constanza HERNANDEZ MD Unavailable Unavailable LYNNE, Constanza HERNANDEZ MD Unavailable Unavailable LYNNE, Constanza HERNANDEZ MD Unavailable Unavailable LYNNE, Constanza HERNANDEZ MD Unavailable Unavailable LYNNE, Constanza HERNANDEZ MD Unavailable Unavailable LYNNE, Constanza HERNANDEZ MD Unavailable Unavailable LYNNE, Constanza HERNANDEZ MD Unavailable Unavailable LYNNE, Constanza HERNANDEZ MD Unavailable Unavailable LYNNE, Constanza HERNANDEZ MD Unavailable Unavailable LYNNE, Constanza HERNANDEZ MD Unavailable Unavailable LYNNE, Constanza HERNANDEZ MD Unavailable Unavailable LYNNE, Constanza HERNANDEZ MD Unavailable Unavailable LYNNE, Constanza HERNANDEZ MD Unavailable Unavailable LYNNE, Constanza HERNANDEZ MD Unavailable Unavailable LYNNE, Constanza HERNANDEZ MD Unavailable Unavailable LYNNE, Constanza HERNANDEZ MD Unavailable Unavailable LYNNE, Constanza HERNANDEZ MD Unavailable Unavailable LYNNE, Constanza HERNANDEZ MD Unavailable Unavailable LYNNE, Constanza HERNANDEZ MD Unavailable Unavailable LYNNE, Constanza HERNANDEZ MD Unavailable Unavailable LYNNE, Constanza HERNANDEZ MD Unavailable Unavailable LYNNE, Constanza HERNANDEZ MD Unavailable Unavailable LYNNE, Constanza HERNANDEZ MD Unavailable Unavailable LYNNE, Constanza HERNANDEZ MD Unavailable Unavailable LYNNE, Constanza HERNANDEZ MD Unavailable Unavailable LYNNE, Constanza HERNANDEZ MD Unavailable Unavailable LYNNE, Constanza HERNANDEZ MD Unavailable Unavailable LYNNE, Constanza HERNANDEZ MD Unavailable Unavailable LYNNE, Constanza HERNANDEZ MD Unavailable Unavailable LYNNE, Constanza HERNANDEZ MD Unavailable Unavailable LYNNE, A CHRISTOPHER MD Unavailable Unavailable LYNNE, Constanza CHRISTOPHER MD Unavailable Unavailable Constanza BATISTA CHRISTESTEFANIER MD Unavailable Unavailable LYNNE, A CHRISTOPHER MD Unavailable Unavailable HAAS, ESTHER MD Unavailable Unavailable HAAS, ESTHER MD Unavailable Unavailable HAAS, ESTHER MD Unavailable Unavailable HAAS, ESTHER MD Unavailable Unavailable HAAS, ESTHER MD Unavailable Unavailable HAAS, ESTHER MD Unavailable Unavailable HAAS, ESTHER MD Unavailable Unavailable HAAS, ESTHER MD Unavailable Unavailable HAAS, ESTHER MD Unavailable Unavailable HAAS, ESTHER MD Unavailable Unavailable HAAS, ESTHER MD Unavailable Unavailable HAAS, ESTHER MD Unavailable Unavailable HAAS, ESTHER MD Unavailable Unavailable HAAS, ESTHER MD Unavailable Unavailable HAAS, ESTHER MD Unavailable Unavailable HAAS, ESTHER MD Unavailable Unavailable HAAS, ESTHER MD Unavailable Unavailable HAAS, ESTHER MD Unavailable Unavailable HAAS, ESTHER MD Unavailable Unavailable HAAS, ESTHER MD Unavailable Unavailable HAAS, ESTHER MD Unavailable Unavailable HAAS, ESTHER MD Unavailable Unavailable HAAS, ESTHER MD Unavailable Unavailable HAAS, ESTHER MD Unavailable Unavailable HAAS, ESTHER MD Unavailable Unavailable HAAS, ESTHER MD Unavailable Unavailable HAAS, ESTHER MD Unavailable Unavailable HAAS, ESTHER MD Unavailable Unavailable HAAS, ESTHER MD Unavailable Unavailable HAAS, ESTHER MD Unavailable Unavailable HAAS, ESTHER MD Unavailable Unavailable HAAS, ESTHER MD Unavailable Unavailable HAAS, ESTHER MD Unavailable Unavailable HAAS, ESTHER MD Unavailable Unavailable HAAS, ESTHER MD Unavailable Unavailable HAAS, ESTHER MD Unavailable Unavailable HAAS, ESTHER MD Unavailable Unavailable HAAS, ESTHER MD Unavailable Unavailable HAAS, ESTHER MD Unavailable Unavailable HAAS, ESTHER MD Unavailable Unavailable HAAS, ESTHER MD Unavailable Unavailable HAAS, ESTHER MD Unavailable Unavailable HAAS, ESTHER MD Unavailable Unavailable HAAS, ESTHER MD Unavailable Unavailable HAAS, ESTHER MD Unavailable Unavailable HAAS, ESTHER MD Unavailable Unavailable HAAS, ESTHER MD Unavailable Unavailable HAAS, ESTHER MD Unavailable Unavailable HAAS, ESTHER MD Unavailable Unavailable HAAS, ESTHER MD Unavailable Unavailable HAAS, ESTHER MD Unavailable Unavailable HAAS, ESTHER MD Unavailable Unavailable HAAS, ESTHER MD Unavailable Unavailable HAAS, ESTHER MD Unavailable Unavailable HAAS, ESTHER MD Unavailable Unavailable HAAS, ESTHER MD Unavailable Unavailable HAAS, ESTHER MD Unavailable Unavailable HAAS, ESTHER MD Unavailable Unavailable HAAS, ESTHER MD Unavailable Unavailable HAAS, ESTHER MD Unavailable Unavailable HAAS, ESTHER MD Unavailable Unavailable HAAS, ESTHER MD Unavailable Unavailable HAAS, ESTHER MD Unavailable Unavailable HAAS, ESTHER MD Unavailable Unavailable HAAS, ESTHER MD Unavailable Unavailable HAAS, ESTHER MD Unavailable Unavailable HAAS, ESTHER MD Unavailable Unavailable HAAS, ESTHER MD Unavailable Unavailable HAAS, ESTHER MD Unavailable Unavailable HAAS, ESTHER MD Unavailable Unavailable HAAS, ESTHER MD Unavailable Unavailable HAAS, ESTHER MD Unavailable Unavailable HAAS, ESTHER MD Unavailable Unavailable HAAS, ESTHER MD Unavailable Unavailable HAAS, ESTHER MD Unavailable Unavailable HAAS, ESTHER MD Unavailable Unavailable HAAS, ESTHER MD Unavailable Unavailable Re-disclosure Warning The records that you are about to access may contain information from federally-assisted alcohol or drug abuse programs. If such information is present, then the following federally mandated warning applies: This information has been disclosed to you from records protected by federal confidentiality rules (42 CFR part 2). The federal rules prohibit you from making any further disclosure of this information unless further disclosure is expressly permitted by the written consent of the person to whom it pertains or as otherwise permitted by 42 CFR part 2. A general authorization for the release of medical or other information is NOT sufficient for this purpose. The Federal rules restrict any use of the information to criminally investigate or prosecute any alcohol or drug abuse patient.The records that you are about to access may contain highly sensitive health information, the redisclosure of which is protected by Article 27-F of the [facility] Public Health law. If you continue you may have access to information: Regarding HIV / AIDS; Provided by facilities licensed or operated by the [facility] Office of Mental Health; or Provided by the [facility] Office for People With Developmental Disabilities. If such information is present, then the following [facility] mandated warning applies: This information has been disclosed to you from confidential records which are protected by state law. State law prohibits you from making any further disclosure of this information without the specific written consent of the person to whom it pertains, or as otherwise permitted by law. Any unauthorized further disclosure in violation of state law may result in a fine or snf sentence or both. A general authorization for the release of medical or other information is NOT sufficient authorization for further disc losure. Allergies and Adverse Reactions Type Description Substance Reaction Status Data Source(s ) increased confusion 09/07/2020 increased confusion 09/07/2020 Carbamazepi eugenio 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[facility], [facility]) Encounters Encounter Providers Location Date Indications Data Source(s ) Outpatient Attender: FELIX DAMON 11/09/2021 12:00:00 AM EDT [facility] Outpatient Attender: MARY BATISTA MDReferrer : ESTHER HAAS MD [facility] 11/09/2020 02:31:04 PM EDT - 11/09/2020 03:11:19 PM ED T Supraventricular tachycardia [facility] Supraventricular tachycardia Outpatient Referrer: ESTHER HAAS MD 09/17/2020 11:47:21 AM EST [facility] Office/Outpatient Visit, Est 09/07/2020Outpatient Attender: Shanna MACEDO 09/07/2020 01:32:57 PM EST 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[facility], [facility]) Office Visit - Level 3 06/01/2020Outpatient Attender: Kelechi MACEDO 06/01/2020 10:03:10 AM EST 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[facility], [facility]) Outpatient Attender: MARY BATISTA MDReferrer : ESTHER HAAS MD [facility] 05/28/2020 12:00:00 AM EST - 05/28/2020 02:14:31 PM ES T Supraventricular tachycardia [facility] Supraventricular tachycardia Office Visit - Level 3 05/21/2020Outpatient Attender: ESTHER VILLAR MD 05/21/2020 08:37:47 AM EST 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[facility], [facility]) OutpatientOffice/Outpatient Visit, Est 05/19/2020 Attender: GURJIT HAAS MD 05/19/2020 08:32:29 AM EST 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[facility], [facility]) Office Visit - Level 3 05/07/2020Outpatient Attender: Lynette MACEDO 05/07/2020 01:51:32 PM EDT 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[facility], [facility]) Outpatient Attender: MARY BATISTA MD 04/10/2020 12: 00:[address] [facility] Immunizations Vaccine Date Status Description Data Source(s) COVID-19 VACCINE Pfizer 09/16/2020 12:00:00 AM EST completed [facility] Vaccine Series Complete: YESThis Data wa s Submitted to [facility] Via [employer]. COVID-19 VACCINE Pfizer 08/26/2020 12:00:00 AM EST completed [facility] Vaccine Series Complete: NOThis Data was Submitted to [facility] [employer]. FLUCELVAX [id number] 03/14/2020 12:00:00 AM EDT completed 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[facility], [facility]) Medications Medication Brand Name Start Date Product Form Dose Route Admi nistrative Instructions Pharmacy Instructions Status Indications Reaction Description Data Source(s) Levothyroxine Sodium 0.1 MG Oral Tablet [Levoxyl] Levo xyL 100 mcg tablet LevoxyL 100 mcg tablet 01/06/2021 12:00:00 AM EDT 1 co mpleted , Take 1 tablet orally every day 01/06/2021 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[facility], [facility]) 24 HR metoprolol succinate 25 MG Extende d Release Oral Tablet Metoprolol Succinate ER 25 MG Oral Tablet Extended Release 24 Hour (TOPROL-XL) Metoprolol Succinate ER 25 MG Oral Tablet Extended Release 24 Hour (TOPROL-XL) 05/29/2020 12:00:00 AM EST 25 mg Oral active SVT (supraventri cular tachycardia) Take 1 tablet by mouth as needed Per pt she does not take qd only prn for SVT [facility] SVT (supraventricular tachycardia) 12 HR Carbamazepine 200 MG Extended Rele ase Oral Tablet [Tegretol] TEGretol XR 200 mg tablet,extended release TEGretol XR 200 mg tablet,extended release 05/21/2020 12:00:00 AM EST 1 completed 09/07/2020 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[facility], [facility]) Cephalexin 250 MG Oral Capsule cephALEXin 250 mg capsu le cephALEXin 250 mg capsule 05/07/2020 12:00:00 AM EDT 1 completed 09/07/2020 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[facility] [facility] 24 HR metoprolol succinate 25 MG Extende d Release Oral Tablet Metoprolol Succinate ER 25 MG Oral Tablet Extended Release 24 Hour (TOPROL-XL) Metoprolol Succinate ER 25 MG Oral Tablet Extended Release 24 Hour (TOPROL-XL) 05/04/2020 12:00:00 AM EDT 25 mg Oral aborted SVT (supraventri cular tachycardia) Take 1 tablet by mouth daily [facility] SVT (supraventricular tachycardia) Sertraline 25 MG Oral Tablet [Zoloft] Zoloft 25 mg tablet Zo loft 25 mg tablet 01/09/2020 12:00:00 AM EDT 1 completed 06/01/2020 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[facility], [facility]) Levothyroxine Sodium 0.112 MG Oral Tablet [Levoxyl] Le voxyL 112 mcg tablet LevoxyL 112 mcg tablet 05/20/2019 12:00:00 AM EST 1 completed 01/06/2021 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[facility], [facility]) 14 ACTUAT Fluticasone propionate 0.25 MG /ACTUAT / salmeterol 0.05 MG/ACTUAT Dry Powder Inhaler [Advair] Advair Diskus 250 mcg-50 mcg/dose powder for inhalation Advair Diskus 250 mcg-50 mcg/dose powder for inhalation 11/15/2010 12:00:00 AM EDT 1 completed 06/01/2020 DARLEEN RTMANAWAF ([facility], [facility]) Omeprazole 20 MG Delayed Release Oral Ca psule omeprazole 20 mg capsule,delayed release omeprazole 20 mg capsule,delayed release 11/15/2010 12:00:00 AM EDT 1 completed 09/07/2020 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[facility], [facility]) Vitamin B 12 0.5 MG Oral Tablet Vitamin B 12 500 MCG O ral Tablet Vitamin B 12 500 MCG Oral Tablet 500 ug Oral aborted Kristofer e 500 mcg by mouth daily [facility] Cholecalciferol 1000 UNT Oral Capsule Vi tamin D, Cholecalciferol, 25 MCG (1000 UT) capsule Vitamin D, Cholecalciferol, 25 MCG (1000 UT) capsule 1000 U Oral aborted Take 1,000 Units by mouth daily [facility] Omeprazole 40 MG Delayed Release Oral Ca psule omeprazole (PRILOSEC) 40 MG capsule omeprazole (PRILOSEC) 40 MG capsule 40 mg Oral aborted Take 40 mg by mouth daily [facility] Betamethasone 0.5 MG/ML Topical Cream Be tamethasone Dipropionate 0.05 % External Cream (DIPROLENE) Betamethasone Dipropionate 0.05 % External Cream (DIPR OLENE) Topical aborted Apply topically Two Times Daily [facility] 12 HR Carbamazepine 200 MG Extended Rele ase Oral Capsule carBAMazepine ER 200 MG Oral Capsule Extended Release 12 Hour (CARBATROL) carBAMazepine ER 200 MG Oral Capsule Extended Release 12 Hour (CARBATROL) 200 mg Oral aborted Take 200 mg by mouth daily [facility] Insurance Providers Payer name Policy type / Coverage type Policy ID Covered constitution party ID Covered constitution party's relationship to [place] Policy [place] Plan Information [id number] Spouse [id number] BC EXC PLANS 1 [id number] [place] F [id number] SPOUSE [id number] [place] / UMR F [id number] SPOUSE [id number] [place] F [id number] SPOUSE [id number] Blue Cross Blue Shield P [id number] SPOUSE [id number] Blue Cross Blue Shield P [id number] SPOUSE [id number] EXCELLUS BCBS [id number] Spo [id number] EXCELLUS BCBS [id number] Spo [id number] [id number] EXCELLUS BCBS [id number] [phone] EXCELLUS H [id number] Spouse [id number] EXCELLUS BCBS [id number] Spo [id number] BLUE CROSS BLUE SHIELD CNY [id number] Blue Cr oss/Shield [id number] BLUE CROSS BLUE SHIELD CNY [id number] Blue Cross/Shield [id number] EXCELLUS BCBS PI PI POMCO [id number] Commercial Insurance [id number] BLUEPOINT/BLUE PREFERRED/ONPOINT [id number] Blue Cross/Shield [id number] BLUE CROSS BLUE SHIELD CNY [id number] Blue Cr oss/Shield [id number] BLUE CROSS BLUE SHIELD CNY [id number] Blue Cr oss/Shield [id number] BLUE CROSS BLUE SHIELD CNY [id number] Blue Cross/Shield [id number] BLUEPOINT/BLUE PREFERRED/ONPOINT [id number] Blue Cross/Shield [id number] POMCO POMCO [id number] Commercial Insurance POMCO BLUEPOINT/BLUE PREFERRED/ONPOINT BLUEPOINT/BLUE PREFERRED/ONPOINT [id number] Blue Cross/Shield BLUEPOINT/BLUE PREFE RRED/ONPOINT BLUE CROSS BLUE SHIELD CNY BLUE CROSS BLUE SHIELD CNY [id number] Blue Cross/Shield BLUE CROSS BLUE SHIELD CNY BLUE CROSS BLUE SHIELD CNY BLUE CROSS BLUE SHIELD CNY [id number] Blue Cross/Shield BLUE CROSS BLUE SHIELD CNY BLUE CROSS BLUE SHIELD CNY BLUE CROSS BLUE SHIELD CNY [id number] Blue Cross/Shield BLUE CROSS BLUE SHIELD CNY BCBS [place] PPO 302/[id number] SELF PAY 2 UNAVAILABLE 1 U[place] 3 [id number] BLUEPOINT/BLUE PREFERRED/ONPOINT BLUEPOINT/BLUE PREFERRED/ONPOINT [id number] Blue Cross/Shield BLUEPOINT/BLUE PREFE RRED/ONPOINT POMCO [id number] Commercial Insurance [id number] BLUE CROSS BLUE SHIELD CNY [id number] Blue Cr oss/Shield [id number] BLUEPOINT/BLUE PREFERRED/ONPOINT [id number] Blue Cross/Shield [id number] BLUE CROSS BLUE SHIELD CNY [id number] Blue Cr oss/Shield [id number] BLUE CROSS BLUE SHIELD CNY [id number] Blue Cr oss/Shield [id number] BLUE CROSS BLUE SHIELD CNY [id number] Blue Cross/Shield [id number] BLUEPOINT/BLUE PREFERRED/ONPOINT [id number] Blue Cross/Shield [id number] BLUE CROSS BLUE SHIELD CNY [id number] Blue Cr oss/Shield [id number] POMCO [id number] Commercial Insurance [id number] BLUEPOINT/BLUE PREFERRED/ONPOINT [id number] Blue Cross/Shield [id number] BLUE CROSS BLUE SHIELD CNY [id number] Blue Cr oss/Shield [id number] Problems, Conditions, and Diagnoses Code Display Name Description Problem Type Effective Dates Data Source(s) L30.9 Dermatitis, unspecified Dermatitis, unspecified (L30.9 ) 09/07/2020 [id number] 09/07/2020 01:32:57 PM EST 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 N30.00 Acute cystitis without hematuria Acute c ystitis without hematuria (N30.00) 05/07/2020 [id number] 05/07/2020 01:51:32 PM EDT 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[facility]) E87.6 Hypokalemia Hypokalemia (E87.6) 05/07/2020 [id number] 01/31/2020 11:02:50 AM EDT - 05/07/2020 12:00:00 AM EDT 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 F32.9 Major depressive disorder, single episod e, unspecified Major depressive disorder, single episode, unspecified (F32.9) 05/07/2020 [id number] 01/09/2020 03:10:13 PM EDT - 05/07/2020 12:00:00 AM EDT 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[facility]) L30.1 Dyshidrosis [pompholyx] Dyshidrosis [pompholyx] (L30.1) 05/07/2020 [id number] 03/18/2019 01:36:05 PM EDT - 05/07/2020 12:00:00 AM ED T 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[facility]) Z01.419 Routine gynecologic examination done [place]ter for gynecological examination (general) (routine) without abnormal findings (Z01.419) 05/07/2020 [id number] 09/20/2016 01:22:03 PM EDT - 05/07/2020 12:00:00 AM ED T 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[facility]) 381.01 Acute non-suppurative otitis media - ser ous Acute serous otitis media (381.01) 05/07/2020 [id number] 09/09/2014 10:42:48 AM EST - 05/07/2020 12:00:00 AM EDT 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[facility]) 305.1 Tobacco use disorder Tobacco use disorder (305.1) 04/10 [id number] 09/15/2011 02:17:22 PM EST - 05/07/2020 12:00:00 AM EDT 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[facility], [facility]) Surgeries/Procedures Procedure Description Date Indications Data Source(s) EKG 12-LEAD - CMAXX REPORT <td>EKG 12-LEAD - CMAXX REPORT</td><td></td><td>11/09/2020 2:40 PM EDT</td><td></td><td></td> 11/09/2020 02:40:35 PM EDT [facility] EKG 12-LEAD <td>EKG 12-LEAD</td><td>Rout ine</td><td>11/09/2020 2:40 PM EDT</td><td> SVT (supraventricular tachycardia)</td><td></td> 11/09/2020 02:40:35 PM EDT SVT (supraventricular tachycardia) [facility] SVT (supraventricular tachycardia) Results ID Date Data Source [id number] 01/05/2021 04:12:24 PM EDT [facility] Name Value Range Interpretation Code Description Data Mirlande rce(s) Supporting Document(s) EKG [facility] AXHGEb1eGvWSByZba8TpYaThUQAqTM8rslz0B3E7nYJdN0GmdVApw7qbG1BoI5NcRSBrDKXNLZ2OsWXv jb2 [file] INFORMATION ARCHITECT+9KjKeNUpdrlTk3DQ+lCih4lOdPsNVf1sI1gWg8TrGqX8PBdhRR5AX/sFM+wEoC4iRzSROYLxYn3a UlyUBSohQznL87RYLyAGpVcjwwtXm58ApL1gkeeNxH /PnEAt74JUyx0CMPFp2da64Tf+qUe0bLfIUk/7XBsiWf4paHOFXAxZVTA3v+G3pC9rg6MdzBwBRtRM86 UCi8FNG0B9pKy1BFzyW4htdWzKm3WvrLnc7EKKBmYHEoIX3uns6VOdnR8H+mC1lPN4eiGMJtBPIa2yiA FmyJpx1EpzGO5hULLrpUxjUD1o4Qji3NqGioOB5jBS EpiynXMoop2Ptg02xJUK4FTGojJxDxSLoQu935vBYa/4ENbT+zSMnbFJ6egqUuglE/aaxRZei45XY3zp N6XSC36mKxAGWIAduM+Eu++w43299f40csg9ShfcR2I//s1rWj/J//ib1zx+J6OT+0m+puZZSemkdnJ0 blzNNpxhUC4ZBb3u6d8057l5h344oh6z524l07d68+ b9Nu+3yS4j2xewzoxyo77+2+v6fW4w0slteknqo2U/Lfpt0W+Mofj371LbZn656FtCgs99pwwwahyse5 +2+32777r2dijypkvcm8+2+72t5rJ556R0Ig9Wid/1t661y0wj0pl94apk1iXd9Bef3y/I7kBmzYpAbm 1I9/Pe0UHxlGn1geldrS1GD13/NwhDc1mvL7Hgm3PN fyX/ZQp6Tg3NCOqotR10EvgBX5D/9fVKv/uxp13gAbLemTT4t0WmbO04Qv8z3akQa+o7kn/qW+lT35HP gWrhewbfHVlAZ2cy51e+ks+c+chfR93z4R/7CkoW90pzGyCN85bv3jBsc//nT3E14Z/c164zdQDtghG2 uwdL7sbq4Yd5I/wJ/gT/Mi2cZxqg+t5px/PQ2rj0Q/ nYV3Su5B+u10R95/m/0YCWvn4xpMyYQa/83/wX8/xfrXT/x4n/O2f/91wTsm/M83+zz+JKatwL36EcKN q6+0yfFAntkASpvpif8fzg+2tu5y6lbxHI/kujdmVvqsK52GQ+AH+Cn+M30xi/ZuA7+A7+An+BH+AH+B v83Xy/QeMLg64oQAnniELat14cpA4wGh9Ph2KqWl+5 9bznjucdzy/aY91WiOE0thF68xc70sqj6RmFaXVz2vrerzb2CB5CK/Jkpok4AUy009F7jMD+Xvi/C/93 4f8u/N+3Hi4tbmX6nRBvdHjyEKg957J/DvTnQH+OCb6Bb+A7+A7+An+BH/zfmNcefpC4afM6w43q2f5u 45S4y7B/wB/gT/YsbwLnum0W4eNL6m6gw/a2gMJi3t Ka5L8a80f5oUd8frFpc0gsbKLdSA4hwHWoi/tfSdRZqrH96vtMJdxYtl/Bn+DbM8+rA1EG5aW54Yx780 tLk11zHy/mw0R0uxl5aCTv5jG/p6osN7tGFK2xmnjlU+n1SFO+yvZM+VniiqS9nr3XsG7/pSlfVdqfdU QBuqd654cb+EixFji30ZEd1ygsv1npIcWWt+cO0Cgn CpryZKYFfAFfwX/VV+W+O4M0+UN1Lq2Yt+A7+A7+An+Bf+ExyVw30Hh7soRo/ktLv059+AK+qK7aurKb f6C+A/G22tWq5AKs/PLcRwW99l/+gnJ1RG2aK7ow1Tjx2Y+5+8SQMkLY0dzKOS7xrh8U7Ki0/DXy8NXe eK+vLs+Z5ax9fc4bqWfO6+6o5uk7dhaNNaB/nOfrtP /FrzPa+Sr/cc///o5qIm7wy+K8PN5WDCgdwwaK1kgLW/M26iAFe/dHJ/5wqbfNe9xdy4en6K6SR5Qz/d G5w3P/O8P/rLQrTn5Rx2HQ/mzoz+E7Ix0xlj9VCqyZ/taZwo893Iuke7xTDreLlcmP4/v85hlMw20+7O aPxqIxUR7Tavi/deSrO+3gY/s6uk2jTF05UwEe6R/m r6v7w+c810tx09ivLirk/+rq/a+uoOXcKz7S76X56hwm4OugBt8Ld/W1KJGRvsMg4P/dQ8pZluPUgTbv 5BOyFp2avmrPYusZ/IHnJ/omUuvyZ0R0yPScGFXZXb/3NXq/dcav6Qw30G1HD24MZ/sharon/c9q5uTfiubX FvAFz+uFNJ4/0M0TxHif3Fku6xDqRi52KH10LekmrF 9dfmr7ryDH/MIlMuvTzdv6Qs9+8OPqk3xxg0IV2rzc/f7OZ3K/v0469/gBmzpAgX6XjQvt/cd3I5GudG gd595LL769yYhzdHwpbm9jxl/2+5Ve4C/wA/wAfz/z/1yDr4uOvVBiaKdwS81MrhNf3buZa1Xu4ybeTc 7A86e+dx/kHs11QRGXklQRm78+2qD46nD7rNkJ Z570qW+2+LOm6x5y+ar+l7Y+32qk3AM/94OcPc0B/dWV/Aaat5b5KVOHP775hdO/EdP628d55OGLBaxt Tp8fqb+60+AH+AH+kemKyFfft2729lUCF/AFfAVfwe/ftt7LGOtJ/aIibDsaYhreF02mTH0P55LhU30s PL/7+XldSIOP+k7UN/JY0Bfmf7g22goF7iiVrmW2Ks 6B7+A7+Pi/E/934v9O/N+5wd/NT/nvCyJl5Qk2mY+hvjbAH+VS4Ka5Uc0W5+TiNiopi9wmes2K+hrqa6 ivo76O+icv64mlsq66+nPqr+40+Pi/jv/r+L+O/uzoz47/m/qr4q/hx46QC0PXpj99JzGQxL48/o51gS /gC/gKvoI/wB/gT/An+Aa+ge/gY/wujN+F+i7Ud6G+ C/VdmK8C/nidn3xiK8943e1/Dlx5VgR+X7U3bMY9gtd1s6y0njuHn790r9zYq8U4wxvM+vZza+EdQ500 dacD/AC/6j2iffst7exLLYwA4Zd9izsRD2/T2pmxvek9Kw4Xo5lWS6/l2LkUu74ltezn+qfi9abFu2lE f6Cd86NH+XfqjJOWeq9kfRs+jmd390yHdwv2WYpVn+ XJP//Xk9/9cBi8oc7dHG/Pq/Xt82p9+7wMfAffwV+UcK0mdctlUK/1z/Pq/e+1vl45oma/Pb5oIBkAY2 VR1Tn4mD+a4kmqIMZ8Z14UizDfa/O5309+5dtBbHLcE62zR0O3WdoPUt403n5ywJ4mydzaw/b6e+6bVD 18180iuwdZ+2Ih4KbqI/gT99Xr7TTHxUZ3G496DCJX UDQOm7bPSk+bTjlpf/CBNOPpfCIL9sktjt8bSfrgFw0i+sG5v77i4Qz3Sh1A1xw1fc9EtCL/d/R5yhx9 njKHgq/gD/AH+BPloz+nfFXvyv1+pnu/P0fv9+fo/j08VYR8qWUmjBLcc/Yku2YdnnDavOAgyRlePcfH /gB/gt/6jXODpNPgO/fp33R88cSt/XkG+N0jOHjA1o a01m+fdnFJanGj77tkN60cvZV9vuzD+Bi/zcMvOX8j9Mu1RK7zH46r7RK3YT+Dj/nKMV85+jPOByfOB6 ezpaV80BU5X2v/9gn+BN/AN/NfvWmK9ale36awUl2Ae1US+Bv8Pj+aKV/lOpLyVaUFfAE/8FsIfz2Mu0 70VrT8TwnK90bPS4J04Z62J964EPS7VRFqhaO8j1gq VaU3+L0/faS8wTj9lbY+mkMdKkZ7fqi+570yD31vF03cRG9oT+ZkOAumH4oQL4X46H7M8jHMiRty8rnM bc8wo+1DPqOuVy6qjdmzBougzsy3t4YWP38hYI8fPcDU1O45JOX5Ie/ku4q64TZr7uy3Tw0A7+Av8Bf4 tt1TuM8Rfm29U/5NwMKr2bdd0t/z8YQcttI1hkH+Kv jgLz8x7OiPwx//sqv/j3C3SIC3Hsw5sh+czR8Hj9Qq07T49G4SmsF/g9/92aTlSZMLfAFfwO/7pRfaq0 wG+WA0Th1U60O84L11Pn+H82L6HzhIP3Jh8Kr2Pvj9RhEXfVmjO24i2Vd7bLq6BlqwoW+ivqm/qjIN5a O+ivqqg7/AX+AH+AE+0JmxY3aEmPfpDsB7ZA//d6C+ A/EswC9DvWx+78D/hf7KoL+b9kUr2YLcudmNg5OFB4xTbOpjF4XgdxbX7XuR1qWO+qtKD/AH+WhtKZ0g 4kboc0PbmuE/F/LZWuPpkL6qVX5qryu4oXVi2TgMZoBRj51AX/C1+3nqr+40+RALgd0nc5evB6m0QSoX 31HOQvkL/HWa65hiox6ufgjbDrY51JOB564XNVO28L rHi1sF53FgpJ2zL4wq0/7Ci2DXK8snW6p+Vo1jy9hcYB1t6gHRigp00/hq3lcx89V+MzIIlCoV85Dss8 JL+tfQV6ECnjMj8gls+wyqFRR86eXGY765bNmuuYaB15fbD00l6IlwY1Fz1Up2U+R4phc6Z9Vr3OG91N faftKizxcM+itL+SrbNlo/aYHxG/i/rs7i74En6Xdw LHnVBv9OkfajQph2b3zbu1k1/bPttn+2PB+stIDf57/nbkSnwR/g5/4o8/I844qNPFuUntyb69kHVG01 PH/7b4r7hz+mpYT6lRs3U1xqI2Ds2z8Ic9PK6XJ10n/6ka/HxbRTzHRq4kmcY718Vl4f3Ib+SlsUP/JV xn3xI1/fjx21kLc6u/P7jgQ7lf/nfc3QC7o+v196j5 XPv+xJ9sQiq8CwrxTKfhvtMdDlI80kZsTlR/Delia/umJWJy2Tx+n3npc+JBW7GFyG0l6Tz0Uc+UvoH6cu gr34ssc+HQX7n0/kol7Obf+snlNUm341d2jA+82Algrc80fl3R+6ssM+2v8n+l/VXxB/j4v2l/lW2u+L 4mi1QrqV99XHyYt4Xz8g245k/dXGAq7ZhEAf7ogG1x /ENxLKuPP7LV7Ak0s906fRk//T/tr7L9R+gtivOJsy0jNZi+h9gAr2ItAlGZSlaT+j5R21a3ZO+t z/HZ+addZQ8U2W8NznR0pG5q+Wx9jqf+qso3lG/dDyf+70R/el1p6Dj6A9+R5mOz9n1/J+prmK+s9bFu bZ/r4wovy5CRajj5oW15N+EB5Yc2bE348/spbm3/7O bgL/AX+AF+rzzU5n8Xjg14Das7Ot/AF/D1WR+54FlZ497NloaN3hF1Ws8Is+N7mXSYhyqcp01v8uxt1v 3ZB05QTJbmatj4eeoT36U+Wp/zuS56rY4SY23exi0c5lc3N62s41Yn1tDi//jq8yNP+kjRvrSf4bY3WZ /0auS57Nd1Pizz11iaQ87z7wvl5VpN0lWzG5XnzW6N raupVStDR1Sq3G/wrb8z+j6OR9/VpFuBGqAJNh9Kjsknbi0q7p11tqmBxD224DcBl66hoCQ/0U06v28D 0/7qTnd/2H2+77C/9v29K97kmkAC/upOd3/rdH328Nr76Uk8V/AD/N4f+d7g9/534fbeuno/uB8bJm1t Y34UpNnja7+4bi3exPoKC3F27F29C2/BX+Zx4GF5TI /jO3v/k7X5y7mTW1B6QiBX3JsS56HiCDo6Ce5N94B93V95/r9L+y9oCgJA+AH+Bh//F/hwLc2Keo9Jia bWHhV6ZJ+IG4Fe7H/nTOiO69BVgiS/WtBfLeivFvRXC/anRd5Jaa0lLC+9mR9h5D8f1K0R8NiT+qsF/d WC/moN/N+B/zvwfwf+73DwF/gL/AAf/Qo3cqpL+qtM p/3zLtBx0Zf0It7O1+cpa/D9ggyZenWlE/KVx1SLaRegyQ/iX2MjiG+Iz4HHdD80GlPALX1MxrO/Wobx a/i/cj3jOP0oh0ckNeqdPdrgQR5PkFU+VpuUeqsWYYbkLlYFUcrU3Dw88UMly4wLW9b3jtobS9m2nawi bR+7XK9+jaELtbGAdbB0Rhc5vZT8LEzT2n77E4/BX+ Ke8ZM8aWbhaZb9FQ7/aEF/xYFacsEdCEujJy3va9jhbGyxc3N/tWB/qMnGa13RChj95FH/rx3VheljEa H55BQLQ80M4mwdV/h9/etil23QDGJI+LlfOO+Kvs++JfVa3Dp81svg8XTZ56J89T40M0+Mh0JK9YV7KM 2tZ2e317em5umKeHp/tLbg+f3uzSrwB5fp+8GV+qtK T/DbnmGlfJXtuTE/775Pt/D4xQuq3+nE8lce1yj5a4cUjsTwy0iC77Vv3yXpQIWUrfW4fYii+apsY+K6 HnuYuI4+5+WMs7xg2lOkOoJX5J7RKZ775k+wb4+xuzrM7bso4in+cK4gHbS/4RZy1mkdpT1gA/gBfoDf 1vkw7f8N2a0e7kv1wEQWTTd8wTTYA4Bc/xvS/zdkgj /FH9TcHHaPctm/PD8UP8PU9Zu3vl7C5U+FXuAL+AK+go/5wnbloN2nRs0ztH7GhX9D7lrZLwhgE4s/GL g/FNhbzEL4DP+D3/T5RHlpL+JQO3Ne5Oxx83kXIUh/8PwAv/U5Mdo+J8r+qtLgO/gO/gJ/gR/goz+Pnp 7l2Mzry+fnmH3/GUqw34XI5PE7DB+BA6Qlz5FKwH2P E+E1Yaibo6iE476X3zDRWy+IGeAH+Gl1Fn1OfAfZ+DqmBtjP7fNKx91pIz1FY/DB9OzXJU2YiRvR0mNj W76Ksm/PdMtXkfJVpVu+Ids10MVs74y3/mZHbJAp36anhV6lEk7mcLpZsdk3blgvQjvdiim+PnoAf3Tp 4Kd+S1h48sUmcatgQu41liB0Ty70dJ/gH/nKMu/R52 Y8tU2bfed0xwB4MS/Xu81XrB0pm8D6/XOk/upOg4/3fkefRNyn4cM4L+zxzk4Hu8Zxvk0rk++zx+r77L BrrvbYg9YK0R+i9TkB+5uDwv9D1gn1Igb+QgT6c/R+IXA+KMultRCcwj6L6hmGfASzHLE+MCLADzy/we /5FNrY70Ho0ygT/mCk5idfz11ueEH/gD/An+B [file] 77yS9++kw7Yb7aXp5MV07jH63le23+5fxDKxjD380i lwflP0jz+ff+MvD8N7/+8rdvv/7qm4+ufnaa8euVD/3i889+8fbrL7/4zYevv/ni428/ebE+pw275cs9 z7083SorK9g4/bPe2718+M1nv/oVyH3l4LlCT5xyi7Xoi7Bmwv++/PU3b1///Lcff/7L/+Ha3gw3foxT X339y/fP+PD5P/4XD0l9+b/8/MOXb5//6tpgjhk5c9 ++/csXH3/+yvD2q5+9/3t1Nhs6m3BOXhvhso6xm3q5LmfmNZ/ttMHDT90ig/eaf/ni0oEru/chJ912+5 lLovr41u1+/flight director/5xdF4cwjjRv2//0b3/48x+/+/3b//N/30852t+///5P3/3d2+f//uc//OWv3//Pf/ /uz2//+t9eLuD/9W/fvv/Tm/9E90/Zo9wszw4g8+2r X/3zCwy9mP9zj/3xjz/5C1+3GpdV8z9+42+Rz6bqiHCiq/9/QI8s/aD776+/G1DXkYVVa1/09e55SJqO f56QDVZZex5tU7/kx+059sI7Xvx4p2/77s9/Rv512ehzGt//3maarAR59x/43uprcrkIuy8e0FrE/odX NjZvtTkzn/vm3d/+5UbwiOojYGt23PBMOrsr1/7017 9/+/O3f/7i6d1P7va3iDp76Nu+upOg5A3g0nJKi/Crr9/+8Ke/fvfn//3tf/wXxd8N+xTf56apjEpTF5 +xf/76m7ff/6/3b//D93/1dyBWfkrMpq3vCpamP/7knz/+mt82Rpg64ImEpB8Y8paJh2XR87S/6OMfbE 0aiiw9GZ3//qob++qTrz/5+Pbt//nuL/954Dz/TeYn P/vwD5+8/F67xw2Zj//753/94h46yy+Mf683o0//4wd/eP8A//zb//W7b//yh2//3C4ArRuk0++//+On P0LvD/7F97/9oPtg08BJxqGIZd46/O53//6nP/zu/A6amd3NO/7gsIYmR6/7y1/fu8zv+fpD1xUeXz4a X337/373Jm/f/9sPh+G9M3zW3PixLYbHeGaQ7/Rrdn g98YZU4+WN1zovR42h/GMih5fD70ga//TD1+/VkHXdiqmug58++fuE+M2fcPZLv8f3qdK/VoSnPo8FKX 4og6SxCFAqQbFuPX2ybbfiFBLsOG2amlq1Z5DbmEupVRhSLZSfNt4wwNLkJH4GSGR3XGiwGJAkMZEsK7 QnsC4oO79vlCLxIzEqQOXQUU2WnbK4UYV3PFW4TJUr KxZeNGZoOA86JJTsUYGOZv3umvKlIyhWMqVsWY1rpcn3E9F3nSWyD351mPqzmbGeOO8Jh8GksHQxTH4B hISfiVGdUVCkKFFyT6qew2EaLGhnORMEVq6lajBsBuuEKvDnDD7icsr4G0D1bCpbjoHwQBTJOEniFkta IH7fkSkcvjdfV2AvnRGnIOFvE9CtWZYje33IOQHpVG tWWbVoMpIlStD3LFZqDszyCxIsQPRtZADwOMWoYZ7JnWUnYAVsSPQSMWkqCnlhLERdrF8ygLMAv6ArLL CKLtBNRiMTZSTMCOnGLJUgOlnpAxK8UWMaK6QefpXrzYGlZURHKTtrPryfDMWosX4ceCavF3UtKGM4h0 WaPN7SM7QvBKGvNMNIEUG1x3OuDBPesbceydhoWwFp BXLgRKYgBNDmPY0Bma6yvYTmnwRbMDRIBJowRltpND3xoPtgxzrqB3CkxUZmIPP+UnUbOU4dal4+CjEg KUWuJzm9CJKsWXvbGIVvUFJtZAGqI5gwKTGlAxZyJLXmVxPcLZ0Vc7AxyBIgIj0tdbRbFzgCtDXiAkhl LQBjEPDaYEJwWkNLMTYlXSWfYNMuWBI2FLIoGDIhHG uuJEYkPBT6COr9DVNhYMCbLP8bLbCqIGLyCyRbBpBeBSCbKBCqqwSSBQXqPRX3PMSxPLPcGTQhEKCgUL hzCGKxSFTgRUXjFDG1NCI8CJLrNgEhWNDtESZlVTXyHEFfEMFbptHUJPNbMCRnIRA4LKNgIEAzVFXlYT yfKJDrAULnFOqdXKNeMDAsBM6aYyWpZDUgUFGdLJyy FPJcUXKaolIUKKItKKCnIBDrJODzNJOgLMUhSDcbDOCnUEBgFFYzKSLvBAKrYO1rHgXtHBMvPUJ1VPNd AYLlBSSzmpBIPKQxWZMlVLv1ADLtWHGuKQBgGYoaSRNtNOTsKFY3ZIEmJUIyHC6oAwAfYFVsJYK4SzUo OFZcRPLitkSXWIHcCJFaDQV3OdXzGJKrPFYoOYtqRK OxIRIcSFviUWAmDHYiYV9mEkYuKDUlQBZtFXrbRZEnXXVgbiBBNUMwLVQjJJGtAhOaZXFjPCXqSOgbQK ZpXKQ3RPHaHBYvHIKaNH4nQaAqBUGrCUN4IWasUGOgCLZjweKGANDtXXXvYTzbDCBsMIFvUYVcTArtMO ErLYQeHJZ2ONRjAXXhKD4fLtOqBUIeRRLsUPWaWwO0 IiIjShBOaWYzjCxnnqt7CTonK1p6JKWnUPtoOF2uvgXnUBImQvifHh0ciPK7VYSoLbjMMy4Fd2UfntS4 xhZsJiT5PbBnHdPiJJ8U ID Date Data Source [id number] 01/05/2021 05:28:22 PM EDT [facility] Name Value Range Interpretation Code Description Data Mirlande rce(s) Supporting Document(s) WBC 6.6 10*3/uL (4.1-11.0) [facility] RBC 4.59 10*6/uL (4.00-5.40) [facility] HGB 14.6 g/dL (12.0-16.0) [facility] HCT 43.5 % (36.0-47.0) [facility] MCV 94.8 fL (80.0-95.0) [facility] MCH 31.8 pg (27.0-32.0) [facility] MCHC 33.6 g/dL (32.0-36.0) [facility] RDW 13.2 % (10.5-14.5) [facility] PLT 319 10*3/uL (150-450) [facility] MPV 7.6 fL (7.1-10.7) [facility] [place] [facility] NEUT % 52.9 % (35.0-75.0) [facility] LYMPH % 30.9 % (16.0-52.0) [facility] MONO % 6.4 % (0.0-8.0) [facility] [place] [facility] EOS % 8.9 % (0.0-5.0) H [facility] [place] [facility] BASO % 0.9 % (0.0-4.0) [facility] [place] [facility] NEUT # 3.5 10*3/uL (1.8-7.7) [facility] LYMPH # 2.0 10*3/uL (1.2-4.8) [facility] MONO # 0.4 10*3/uL (0.0-0.8) [facility] Eosinophils [#/volume] in Blood by Automated count 0.6 10*3/uL (0.0-0 .5) H [facility] [place] [facility] BASO # 0.1 10*3/uL (0.0-0.2) [facility] ID Date Data Source [id number] 01/05/2021 05:34:39 PM EDT [facility] Name Value Range Interpretation Code Description Data Mirlande rce(s) Supporting Document(s) VITAMIN B12 @ 637 pg/mL (193-986) [facility] ID Date Data Source [id number] 01/05/2021 05:34:39 PM EDT [facility] Name Value Range Interpretation Code Description Data Mirlande rce(s) Supporting Document(s) SODIUM 139 mmol/L (136-145) [facility] [place] [facility] POTASSIUM 3.6 mmol/L (3.6-5.2) [facility] [place] [facility] CHLORIDE 104 mmol/L (100-108) [facility] [place] [facility] CO2 24 mmol/L (22-31) [facility] [place] [facility] ANION GAP 11 mmol/L (7-16) [facility] [place] [facility] UREA NITROGEN 15 mg/dL (7-24) [facility] CREATININE 0.82 mg/dL (0.60-1.00) [facility] BUN/CREAT RATIO 18.3 RATIO (10.0-20.0) [facility] [place] [facility] GLUCOSE 98 mg/dL (70-99) [facility] [place] [facility] CALCIUM 9.4 mg/dL (8.4-10.2) [facility] [place] [facility] TOTAL PROTEIN 7.8 g/dL (6.4-8.2) [facility] ALBUMIN 4.4 g/dL (3.5-4.6) [facility] [place] [facility] GLOBULIN 3.4 g/dL (2.7-4.3) [facility] [place] [facility] - [facility] ALB/GLOB RATIO 1.3 RATIO [facility] CORE ALKALINE PHOSPHATASE 77 U/L (45-117) [facility] [place] [facility] - [facility] BILIRUBIN,TOTAL 0.5 mg/dL (0.0-1.0) [facility] PLEASE NOTE:Total bilirubin results may be falselyelevated in patients taking Eltrombopag. AST (SGOT) 12 U/L (11-39) [facility] [place] [facility] [employer] - CORE ALT (SGPT) 16 U/L (12-78) [facility] [place] [facility] GFR >60 ml/min/1.73m2 (>59) [facility] - CORE GFR ( AMER) >60 ml/min/1.73m2 (>59) [facility] [place] [facility] - CORE GFR INTERPRETATION [facility] [place] [facility] CORE --NORMAL KIDNEY FUNCTION OR MILD DISEASE - GFR >OR= 60CHRONIC KIDNEY DISEASE - GFR 15 - 59RENAL FAILURE - GFR <15 Est. GFR calculation based on the MDRDstudy equation, which assumes a steadystate for creatinine. Est. GFR should notbe used for medication dosing. ID Date Data Source [id number] 01/05/2021 05:34:39 PM EDT [facility] Name Value Range Interpretation Code Description Data Mirlande rce(s) Supporting Document(s) TSH,ULTRASENSITIVE @ 0.154 mIU/L (0.360-4.170) L Laboratory [place] [facility] ID Date Data Source [id number] 01/05/2021 12:00:00 AM EDT 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[facility]) Name Value Range Interpretation Code Description Data Mirlande rce(s) Supporting Document(s) BASO # 0.1 10*3/uL BASO #: 0.1 10*3/uL 12/09 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[facility]) ID Date Data Source [id number] 01/05/2021 12:00:00 AM EDT 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[facility]) Name Value Range Interpretation Code Description Data Mirlande rce(s) Supporting Document(s) EOS # 0.6 10*uL EOS #: 0.6 10*3/uL 01/05 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[facility]) ID Date Data Source [id number] 01/05/2021 12:00:00 AM EDT 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[facility]) Name Value Range Interpretation Code Description Data Mirlande rce(s) Supporting Document(s) MONO # 0.4 10*3/uL MONO #: 0.4 10*3/uL 12/09 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[facility]) ID Date Data Source [id number] 01/05/2021 12:00:00 AM EDT 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[facility]) Name Value Range Interpretation Code Description Data Mirlande rce(s) Supporting Document(s) LYMPH # 2 10*3/uL LYMPH #: 2 10*3/uL 2020 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[facility]) ID Date Data Source [id number] 01/05/2021 12:00:00 AM EDT 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[facility]) Name Value Range Interpretation Code Description Data Mirlande rce(s) Supporting Document(s) NEUT # 3.5 10*3/uL NEUT #: 3.5 10*3/uL 603/2021 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[facility]) ID Date Data Source [id number] 01/05/2021 12:00:00 AM EDT 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[facility], [facility]) Name Value Range Interpretation Code Description Data Mirlande rce(s) Supporting Document(s) BASO % 0.9 % BASO %: 0.9 % 01/05/2021 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[facility], [facility]) ID Date Data Source [id number] 01/05/2021 12:00:00 AM EDT 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[facility], [facility]) Name Value Range Interpretation Code Description Data Mirlande rce(s) Supporting Document(s) EOS % 8.9 % EOS %: 8.9 % 01/05/2021 C HARTWYKER ([facility]) ID Date Data Source [id number] 01/05/2021 12:00:00 AM EDT 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[facility], [facility]) Name Value Range Interpretation Code Description Data Mirlande rce(s) Supporting Document(s) MONO % 6.4 % MONO %: 6.4 % 01/05/2021 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[facility]) ID Date Data Source [id number] 01/05/2021 12:00:00 AM EDT 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[facility]) Name Value Range Interpretation Code Description Data Mirlande rce(s) Supporting Document(s) LYMPH % 30.9 % LYMPH %: 30.9 % 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[facility]) ID Date Data Source [id number] 01/05/2021 12:00:00 AM EDT 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[facility]) Name Value Range Interpretation Code Description Data Mirlande rce(s) Supporting Document(s) NEUT % 52.9 % NEUT %: 52.9 % 01/05/2021 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[facility]) ID Date Data Source [id number] 01/05/2021 12:00:00 AM EDT 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[facility]) Name Value Range Interpretation Code Description Data Mirlande rce(s) Supporting Document(s) MPV 7.6 fL MPV: 7.6 fL 01/05/2021 CH ARTMAKER ([facility], [facility]) ID Date Data Source [id number] 01/05/2021 12:00:00 AM EDT 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[facility], [facility]) Name Value Range Interpretation Code Description Data Mirlande rce(s) Supporting Document(s) PLT 319 10*3/uL PLT: 319 10*3/uL 021 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[facility], [facility]) ID Date Data Source [id number] 01/05/2021 12:00:00 AM EDT 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[facility], [facility]) Name Value Range Interpretation Code Description Data Mirlande rce(s) Supporting Document(s) RDW 13.2 % RDW: 13.2 % 01/05/2021 CH ARTMAKER ([facility], [facility]) ID Date Data Source [id number] 01/05/2021 12:00:00 AM EDT 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[facility], [facility]) Name Value Range Interpretation Code Description Data Mirlande rce(s) Supporting Document(s) MCHC 33.6 g/dL MCHC: 33.6 g/dL 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[facility], [facility]) ID Date Data Source [id number] 01/05/2021 12:00:00 AM EDT 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[facility], [facility]) Name Value Range Interpretation Code Description Data Mirlande rce(s) Supporting Document(s) MCH 31.8 pg MCH: 31.8 pg 01/05/2021 C HARTVERONICA ([facility], [facility]) ID Date Data Source [id number] 01/05/2021 12:00:00 AM EDT 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[facility], [facility]) Name Value Range Interpretation Code Description Data Mirlande rce(s) Supporting Document(s) MCV 94.8 fL MCV: 94.8 fL 01/05/2021 C PIPPA ([facility], [facility]) ID Date Data Source [id number] 01/05/2021 12:00:00 AM EDT 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[facility], [facility]) Name Value Range Interpretation Code Description Data Mirlande rce(s) Supporting Document(s) HCT 43.5 % HCT: 43.5 % 01/05/2021 ARTMAKER ([facility]) ID Date Data Source [id number] 01/05/2021 12:00:00 AM EDT 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[facility]) Name Value Range Interpretation Code Description Data Mirlande rce(s) Supporting Document(s) HGB 14.6 g/dL HGB: 14.6 g/dL 01/05/2021 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[facility]) ID Date Data Source [id number] 01/05/2021 12:00:00 AM EDT 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[facility]) Name Value Range Interpretation Code Description Data Mirlande rce(s) Supporting Document(s) RBC 4.59 10*6/uL RBC: 4.59 10*6/uL 01/05 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[facility]) ID Date Data Source [id number] 01/05/2021 12:00:00 AM EDT 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[facility]) Name Value Range Interpretation Code Description Data Mirlande rce(s) Supporting Document(s) WBC 6.6 10*3/uL WBC: 6.6 10*3/uL 021 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[facility]) ID Date Data Source [id number] 01/05/2021 12:00:00 AM EDT 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[facility]) Name Value Range Interpretation Code Description Data Mirlande rce(s) Supporting Document(s) VITAMIN B12 @ 637 pg/mL VITAMIN B12 @: 637 pg /mL 01/05/2021 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[facility]) ID Date Data Source [id number] 01/05/2021 12:00:00 AM EDT 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[facility]) Name Value Range Interpretation Code Description Data Mirlande rce(s) Supporting Document(s) GFR ( AMER) >60 GFR ( AMER ): >60 01/05/2021 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[facility]) ID Date Data Source [id number] 01/05/2021 12:00:00 AM EDT 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[facility], [facility]) Name Value Range Interpretation Code Description Data Mirlande rce(s) Supporting Document(s) GFR >60 GFR : >60 01/05/2021 BRANDON TMAKER ([facility], [facility]) ID Date Data Source [id number] 01/05/2021 12:00:00 AM EDT 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[facility]) Name Value Range Interpretation Code Description Data Mirlande rce(s) Supporting Document(s) ALT (SGPT) 16 U/L ALT (SGPT): 16 U/L 2020 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[facility]) ID Date Data Source [id number] 01/05/2021 12:00:00 AM EDT 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[facility]) Name Value Range Interpretation Code Description Data Mirlande rce(s) Supporting Document(s) AST (SGOT) 12 U/L AST (SGOT): 12 U/L 2020 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[facility]) ID Date Data Source [id number] 01/05/2021 12:00:00 AM EDT 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[facility]) Name Value Range Interpretation Code Description Data Mirlande rce(s) Supporting Document(s) BILIRUBIN,TOTAL 0.5 MG/DL BILIRUBIN,TOTAL: 0. 5 MG/DL 01/05/2021 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[facility]) ID Date Data Source [id number] 01/05/2021 12:00:00 AM EDT 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[facility]) Name Value Range Interpretation Code Description Data Mirlande rce(s) Supporting Document(s) ALKALINE PHOSPHATASE 77 U/L ALKALINE PHOSPH ATASE: 77 U/L 01/05/2021 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[facility]) ID Date Data Source [id number] 01/05/2021 12:00:00 AM EDT 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[facility]) Name Value Range Interpretation Code Description Data Mirlande rce(s) Supporting Document(s) ALB/GLOB RATIO 1.3 RATIO ALB/GLOB RATIO: 1.3 RATIO 01/05/2021 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[facility]) ID Date Data Source [id number] 01/05/2021 12:00:00 AM EDT 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[facility]) Name Value Range Interpretation Code Description Data Mirlande rce(s) Supporting Document(s) GLOBULIN 3.4 g/dL GLOBULIN: 3.4 g/dL 2020 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[facility]) ID Date Data Source [id number] 01/05/2021 12:00:00 AM EDT 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[facility]) Name Value Range Interpretation Code Description Data Mirlande rce(s) Supporting Document(s) Albumin 4.4 g/dL Albumin: 4.4 g/dL 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[facility]) ID Date Data Source [id number] 01/05/2021 12:00:00 AM EDT 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[facility]) Name Value Range Interpretation Code Description Data Mirlande rce(s) Supporting Document(s) TOTAL PROTEIN 7.8 g/dL TOTAL PROTEIN: 7.8 g/ dL 01/05/2021 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[facility]) ID Date Data Source [id number] 01/05/2021 12:00:00 AM EDT 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[facility]) Name Value Range Interpretation Code Description Data Mirlande rce(s) Supporting Document(s) CALCIUM 9.4 MG/DL CALCIUM: 9.4 MG/DL 2020 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[facility]) ID Date Data Source [id number] 01/05/2021 12:00:00 AM EDT 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[facility]) Name Value Range Interpretation Code Description Data Mirlande rce(s) Supporting Document(s) Glucose 98 MG/DL Glucose: 98 MG/DL 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[facility]) ID Date Data Source [id number] 01/05/2021 12:00:00 AM EDT 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[facility]) Name Value Range Interpretation Code Description Data Mirlande rce(s) Supporting Document(s) BUN/CREAT RATIO 18.3 RATIO BUN/CREAT RATIO: 18 .3 RATIO 01/05/2021 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[facility]) ID Date Data Source [id number] 01/05/2021 12:00:00 AM EDT 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[facility]) Name Value Range Interpretation Code Description Data Mirlande rce(s) Supporting Document(s) Creatinine 0.82 MG/DL Creatinine: 0.82 MG/DL 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[facility]) ID Date Data Source [id number] 01/05/2021 12:00:00 AM EDT 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[facility]) Name Value Range Interpretation Code Description Data Mirlande rce(s) Supporting Document(s) UREA NITROGEN 15 MG/DL UREA NITROGEN: 15 MG/ DL 01/05/2021 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[facility]) ID Date Data Source [id number] 01/05/2021 12:00:00 AM EDT 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[facility]) Name Value Range Interpretation Code Description Data Mirlande rce(s) Supporting Document(s) Anion Gap 11 mmol/L Anion Gap: 11 mmol/L 12/09 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[facility]) ID Date Data Source [id number] 01/05/2021 12:00:00 AM EDT 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[facility]) Name Value Range Interpretation Code Description Data Mirlande rce(s) Supporting Document(s) CO2 24 mmol/L CO2: 24 mmol/L 01/05/2021 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[facility]) ID Date Data Source [id number] 01/05/2021 12:00:00 AM EDT 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[facility]) Name Value Range Interpretation Code Description Data Mirlande rce(s) Supporting Document(s) CHLORIDE 104 mmol/L CHLORIDE: 104 mmol/L 12/09 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[facility]) ID Date Data Source [id number] 01/05/2021 12:00:00 AM EDT 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[facility], [facility]) Name Value Range Interpretation Code Description Data Mirlande rce(s) Supporting Document(s) SODIUM 139 mmol/L SODIUM: 139 mmol/L 2020 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[facility]) ID Date Data Source [id number] 01/05/2021 12:00:00 AM EDT 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[facility]) Name Value Range Interpretation Code Description Data Mirlande rce(s) Supporting Document(s) Potassium 3.6 mmol/L Potassium: 3.6 mmol/L 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[facility]) ID Date Data Source [id number] 01/05/2021 12:00:00 AM EDT 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[facility]) Name Value Range Interpretation Code Description Data Mirlande rce(s) Supporting Document(s) TSH,ULTRASENSITIVE @ 0.154 mIU/L TSH,ULT RASENSITIVE @: 0.154 mIU/L 01/05/2021 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[facility]) ID Date Data Source [id number] 11/09/2020 03:29:14 PM EDT [facility] Name Value Range Interpretation Code Description Data Mirlande rce(s) Supporting Document(s) Progress Note [facility] AEEXDi3xDpKIRcOy30/RACfqQJZmy8GeTFcwHVx5OIxnUZXoW0KqLHN6zE9iFUG2MQbXZvEwPvNoTPWk [facility] [file] mwWTFcCSIcOhNpFrQ0R8ShJmXrXwQyJF3FZt8RRbZ7WCR2nDNfUg6IBaieAKFTAzHfUU9GJOz= ID Date Data Source [id number] 10/14/2020 03:40:00 PM EDT [facility] MAM[facility] SCREEN BL W CAD W TOMOSYNTHESISCLINICAL HISTORY: Screening mammogram. Last Clinical Breast Exam: 2016. vTyrer-Cuzick Model 10-year risk: 4.1% (Average: 3.5%) Tyrer-Cuzick Model lifetime risk: 11.2% (Average: 9.5%).COMPARISON: Mammogram 09/23/2016, 06/23/2015, 11/19/2012TECHNIQUE: Craniocaudal and oblique views were obtained digitally. Craniocaudal views were reviewed by CAD. Digital Breast Tomosynthesis was obtained.FINDINGS: The breast tissue is heterogeneously dense, which could obscure detection of small masses.No dominant mass, suspicio us microcalcification, architectural distortion or skin/nipple thickening or retraction is seen.There are no significant changes compared to the prior study/studies.IMPRESSION: Negative mammogram with Digital Breast Tomosynthesis.A follow up mammogram is recommended in one year as per the [employer].ACR Breast Density:C- Heterogeneously denseCLASSIFICATION: BI-RADS 1 - NEGATIVEResultCode: BR 1 CDISCLAIMER: According to the [place] and the [place] [employer], any patient with a lifetime risk assessment greater than 20% or patients with dense breasts (heterogeneously or extremely dense), may benefit from additional screening tests for breast cancer. Further screening tests for patients with dense breasts (heterogeneously or extremely dense) should be based upon the patient's breast cancer risk status. All patients, having their mammogram with [facility], with a lifetime risk assessment greater than 20% or with dense breasts, will be given the opportunity to meet with our certified breast health navigator to discuss their risk and further imaging options.Further screening tests include Ultrasound and MR (Magnetic Resonance) imaging.Dictated by: CHARLES SANDHU M.D. on 10/15/2020lectronically Signed by: CHARLES SANDHU M.D. on 10/15/2020 08:30 AMTranscribed by: franco 10/15/2020 08:30 AM CDS G Code: , ,CDS Modifier: , ,cc: Name Value Range Interpretation Code Description Data Mirlande rce(s) Supporting Document(s) ID Date Data Source [id number] 05/29/2020 01:11:22 PM [facility] Name Value Range Interpretation Code Description Data Mirlande rce(s) Supporting Document(s) Progress Note [facility] NNHVNj7kMvUOKsNc01/XITsoERLbg0KcHBynJJc6MTrdDIWcT4YuTWY4oC0bLBF5WPaRZlPcVhGrRBNz [facility] [file] ICAgICAgICAgICAgICAgICAgICAgICAgICAgICAgIC AgICAgICAgICAgICAgICAgICAgICAgDQogICAgICAgICAgICAgICAgICAgICAgICAgICAgICAgICAgIC AgICAgICAgICAgICAgICAgICAgICAgICAgICAgICAgICAgICAgICAgICAgICAgICAgICAgICAgICAgIC AgICAgDQogICAgICAgICAgICAgICAgICAgICAgICAg ICAgICAgICAgICAgICAgICAgICAgICAgICAgICAgICAgICAgICAgICAgICAgICAgICAgICAgICAgICAg ICAgICAgICAgICAgICAgDQogICAgICAgICAgICAgICAgICAgICAgICAgICAgICAgICAgICAgICAgICAg ICAgICAgICAgICAgICAgICAgICAgICAgICAgICAgIC AgICAgICAgICAgICAgICAgICAgICAgICAgDQogICAgICAgICAgICAgICAgICAgICAgICAgICAgICAgIC AgICAgICAgICAgICAgICAgICAgICAgICAgICAgICAgICAgICAgICAgICAgICAgICAgICAgICAgICAgIC AgICAgICAgDQogICAgICAgICAgICAgICAgICAgICAg ICAgICAgICAgICAgICAgICAgICAgICAgICAgICAgICAgICAgICAgICAgICAgICAgICAgICAgICAgICAg ICAgICAgICAgICAgICAgICAgDQogICAgICAgICAgICAgICAgICAgICAgICAgICAgICAgICAgICAgICAg ICAgICAgICAgICAgICAgICAgICAgICAgICAgICAgIC AgICAgICAgICAgICAgICAgICAgICAgICAgICAgDQogICAgICAgICAgICAgICAgICAgICAgICAgICAgIC AgICAgICAgICAgICAgICAgICAgICAgICAgICAgICAgICAgICAgICAgICAgICAgICAgICAgICAgICAgIC AgICAgICAgICAgDQogICAgICAgICAgICAgICAgICAg ICAgICAgICAgICAgICAgICAgICAgICAgICAgICAgICAgICAgICAgICAgICAgICAgICAgICAgICAgICAg ICAgICAgICAgICAgICAgICAgICAgDQogICAgICAgICAgICAgICAgICAgICAgICAgICAgICAgICAgICAg ICAgICAgICAgICAgICAgICAgICAgICAgICAgICAgIC DyWVWgTYGeYTYuKFFcBZRhIKXyEGFlHILhVZLwQLXaTJt8J3gcHQXyPYDqUM2yQYa1Xv3+DQoNCmVuZH G0aeHrrM3ZPW7ad7QqDNmpTQKob4FxIHr5SS7JHKXbXWhhCJ3BBTpjoi3HMUWsNEXetAIDy1clFyXuOC W4OGCeGkrrYP2DOQXdD0uxdpRoKAErKRJPCFngRYBN NCrhCFEIXWTzIJFcMlDkJYvdGU9Fu4RqiTC7ZDe+Yf5KRG4no1ZdUZoaAMSuCT4xng8KARxLByEiE2Sh gfR3DWXzTGOkQk7TUMOnYXRpzDSeTeMrYKSEBfDtH7NceC45LHMMMn3+FEsfxlLcUgqGIfKwTDIiv1Iv SVi1MQ8XWBExLYb4eECxOZNpT7Xed2MiFu81NBRyOn ekK8ekcFM3v2UwPNBgVWVMKLOxm76fPRBMOORvuPPiRA4gHH9cJCPsTIOeKpJfYNBRZN5IVEIxUWHuiV YoNBBuHZOPWV0VCRopCYL0XDDdixGrgUEkAAozRZ8TTFIzmvVwMsVgKJFKGPw+Mp7EVM8mv3XdQYcaQt ZbYV0ock7ZTRmDVeAeZ4X4hVOnQ0A8RPrvNv7FSADa SISfVbykAMOIILbnMX2UMO6ehkL7AL0BtHBrIPPtQDUtnKKgFEp5O46ssDQyOXmyMY1EKSC+Andrey+Pg0K OIFnEZTyRVKtEpMfARSRIaOaL7RrU0EWz9SlZ5JmOE32kInddbFdLMxxOZ2MDY4jBEBcVCVQQM0VlGZv cU6fhyXyWPFrNPNCKjWqY89xbOAlFZBrNEWrOPAwAb 8IERJaS5CvqiVyxOirbsOzSSRpPCQUMS5DJIyccxIinWQzxNhqNS62jFjyML9BWt7SNnWgDM1zkl9BnG JmFb6MQSApZD5UDTMoIEYnDYFiBCI1LTXwRjZoWFuaOKXfYNFvEQC2EVQdVYCxMX7NCtKoENDnIlNvQD GbUFLvABTcmp9ZIKBiZFBaVrL3EoYxIMUcISOtNDpo LNXuLATnYWE8JOEkOJZrRL1AZrMyWZMrPYJ0HguoONMpYBSpil9PKSKbXHOjTuo9MWOgQEGnBFXkOZvq JNBeDMK5SzLlLXJwTPFeIB8KEiDeNLKdDGC3WqahHSZjWSZfyr1IPBQyGNFvFCThVMUmRFClZOFtYBhf LFVhBIQ6SRHfAISrSWOdKU4BYcXlAKFkTTEtLJacIB PgGOMrbz9LSGFiIGLnLcNuQRDyRSZiCKUxBSwoPVJaVKIzIGL1PDNyRCDzZD5QEySnAPPoSBP5UiTaPR EwZMQnwx2IESTwMBJzXrf5DVZbFDSeDWSrJLdfKWHlPFW1YQF4MSPxACHeJW1FKqWySHXuOFUqABPaTY DaXJGimt4FGBPpZXZuXMH9QGAjTMBoVGEkAXpzQXXe KKP9WuM0BAFlBIMuOL9YZrIeBIEhBismCNaePZBfUFEihz1LZAYgODFgLwL5OSMyUZJsUMDcDTnwBLAh QUL1UPS2CEAbGYXtHB4ZDmWaBZKpIts8IEJpORKbQVApby2GWWUaZWVqWLO0HiOuBGVgBXYmNYkoXWRp HLR2ZwryCWJpYVChVP0IPoGtNBElGdq2URcpETXzNC Hyiy4LTBMvEFFxNBtdJpHqIDHpWYChRNmnBQKyZIFiQTvlHVVbGGBmYL1TBaRuFGNpBaKaZhxvXWXfAV Vyob0RKEBtBGLwPBpsUsQmQXIhELRlEBkrHYDsKMAeEMH2PGErMUNcQZ8KIpSzMXDpRiKsSiIlNRUkVW Ayce1FALGwXOVyXeK5IeIzMNOlUUIsJNh6tmIezDXh MLl5ID3MN1MzeaKjPuAUYk9Js193SRZcJRMsSz9AO5dgNp8iWKFaTYZHYk2MOTu1VnL3YeY4DAR6JZuq PwNuCbQdPRSjWQD0NOEcAXKhNuN+GWvmFAGoDnHwKFf2ADJoF8MrWwZtW3NiUwG7OiTpHRL6CW2yUYCA Cj4+YIaqdKRvdFboRNOFVhGbOcMsUZekQORSJu8Y ID Date Data Source [id number] 05/11/2020 02:52:15 PM EST Laboratory Al brian [facility] - CORE SPECIMEN DESCRIPTION URINE, COLLE CTION METHOD NOT SPECIFIEDCULTURE RESULTS NO GROWTHREPORT STATUS FINAL 05/11/2020 Name Value Range Interpretation Code Description Data Mirlande rce(s) Supporting Document(s) Procedure Social History Code Duration Value Status Description Data Source(s ) Alcohol intake 11/09/2020 12:00:00 AM EDT Current drinker of al cohol (finding) completed Current drinker of alcohol (finding) [facility] Tobacco use and exposure 11/09/2020 12:00:00 AM EDT Never used co mpleted Never used [facility] Smoking 11/09/2020 12:00:00 AM EDT Current every day smoker co mpleted Current every day smoker [facility] Smoking 09/07/2020 12:00:00 AM EST Current every day smoker co mpleted Current every day smoker 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[facility], [facility]) Smoking 06/01/2020 12:00:00 AM EST Heavy tobacco smoker, over 10 cigarettes a day completed Heavy tobacco smoker, over 10 cigarettes a day 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[facility]) Alcohol intake 05/28/2020 12:00:00 AM EST Current drinker of al cohol (finding) completed Current drinker of alcohol (finding) [facility] Cigarette pack-years 05/28/2020 12:00:00 AM EST [facility] Cigarettes smoked current (pack per day) - Reported 05/28/20 12:00:00 AM EST [facility] Vital Signs ID Date Data Source UNK Name Value Range Interpretation Code Description Data Source(s) Body mass index (BMI) [Ratio] 26.923744 kg/m2 2 6.016500 kg/m2 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[facility]) Diastolic blood pressure 64 mm[Hg] 64 mm[Hg] 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[facility]) Body temperature 97.6 [degF] 97.6 [degF] JENNIFER MCCORMICK ([facility]) Heart rate 80 /min 80 /min 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[facility]) Systolic blood pressure 120 mm[Hg] 120 mm[Hg] C PIPPA ([facility]) Body height 62.5 [in_i] 62.5 [in_i] 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[facility]) Body weight 147 [lb_av] 147 [lb_av] 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[facility]) Diastolic blood pressure 74 mm[Hg] 74 mm[Hg] 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[facility]) Body mass index (BMI) [Ratio] 25.5188014637662 kg/m2 25.1910276024712 kg/m2 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[facility]) Body temperature 97.4 [degF] 97.4 [degF] JENNIFER MCCORMICK ([facility]) Heart rate 74 /min 74 /min 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[facility]) Systolic blood pressure 128 mm[Hg] 128 mm[Hg] C PIPPA ([facility]) Body height 63 [in_i] 63 [in_i] 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[facility]) Body weight 143 [lb_av] 143 [lb_av] 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[facility], [facility]) Body temperature 98.4 [degF] 98.4 [degF] JENNIFER MCCORMICK ([facility], [facility]) Heart rate 96 /min 96 /min 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[facility], [facility]) Systolic blood pressure 128 mm[Hg] 128 mm[Hg] C HARTVERONICA ([facility], [facility]) Diastolic blood pressure 82 mm[Hg] 82 mm[Hg] 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[facility], [facility]) Body weight 142 [lb_av] 142 [lb_av] 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[facility]) ID Date Data Source [id number] 05/29/2020 01:11:22 PM [facility] Name Value Range Interpretation Code Description Data Source(s) WEIGHT RECORDED 144 lb 144 lb [facility] Body height Measured 62 in 62 in [facility] Patient Treatment Plan of Care Planned Activity Planned Date Details Description Data Source (s) 24 HR metoprolol succinate 25 MG Extended Release Oral Tablet 05/29/2020 12:00:[address] [facility]spital 24 HR metoprolol succinate 25 MG Extended Release Oral Tablet 05/04/2020 12:00:00 AM [facility] 12 HR Carbamazepine 200 MG Extended Release Oral Capsule [facility] Betamethasone 0.5 MG/ML Topical Cream [facility] Omeprazole 40 MG Delayed Release Oral Capsule [facility] Cholecalciferol 1000 UNT Oral Capsule [facility] Vitamin B 12 0.5 MG Oral Tablet [facility]
--- NOTE | 2021-05-01 06:58 | ECGEPIP ---
[facility] - ED Test Date: 2021-04-30 Pat Name: DERRICK ROPER Department: Room: - Gender: Female Nurse Transplant: KALEB : [id number] Requested By: GABRIEL COOL Order Number: [id number] Reading MD: Gabriel Allison Measurements Intervals [place] Rate: 62 P: 62 LA: 170 QRS: 82 QRSD: 78 T: 27 QT: 428 QTc: 434 Interpretive Statements Normal sinus rhythm Comparison tracing not on file Electronically Signed on 05-01-2021 6:58:11 EDT by Gabriel Allison
== END 2021-04-30 23:57 | disposition home or self-care (01) ==
LOC: M ED 19:22
DX: F43.0 Acute stress reaction (principal); Z88.5 Allergy status to narcotic agent

== ENCOUNTER → 2022-01-24 | Outpatient (CLI) | payer BC | LOC: M WHC 12:25 | PROVIDERS: ATTEND Family Medicine | DX: Z12.31 Encounter for screening mammogram for malignant neoplasm of breast (principal) ==

== ENCOUNTER → 2022-01-24 | Outpatient (CLI) | payer BC | LOC: M RAD 10:08 | PROVIDERS: ATTEND Family Medicine | DX: F17.200 Nicotine dependence, unspecified, uncomplicated (principal); R63.4 Abnormal weight loss ==

== ENCOUNTER → 2022-04-12 | Outpatient (CLI) | payer BC ==
[~2022-04-12] MED LIST: ATOR1TAB21; BRIN1TAB; LEVO100T5; METO1TAB32 PO
== END ==
LOC: M RAD 17:29
PROVIDERS: ATTEND Otolaryngology
DX: R59.9 Enlarged lymph nodes, unspecified (principal); K02.9 Dental caries, unspecified

== ENCOUNTER → 2023-02-07 | Outpatient (CLI) | payer BC ==
[2023-02-07 13:39] LABS: BASO # 0.1 10^3/uL (0.0-0.2); BASO % 1.5 % (0.0-1.0); EOS % 14.7 % (0.0-3.0); HEMOGLOBIN 14.1 g/dl (12.0-15.5); LYMPH # 2.5 10^3/uL (1.5-5.0); LYMPH % 37.3 % (24.0-44.0); MEAN CORPUSCULAR HEMOGLOBIN 31.6 pg (27.0-33.0); MEAN CORPUSCULAR HGB CONC 33.6 g/dl (32.0-36.5); MEAN CORPUSCULAR VOLUME 94.2 fl (80.0-96.0); MONO # 0.5 10^3/uL (0.0-0.8); MONO % 6.9 % (2.0-8.0); NEUTROPHILS # 2.7 10^3/uL (1.5-8.5); NEUTROPHILS % 39.5 % (36.0-66.0); PLATELET COUNT, AUTOMATED 267 10^3/uL (150-450); RED BLOOD COUNT 4.46 10^6/uL (4.00-5.40); WHITE BLOOD COUNT 6.8 10^3/uL (4.0-10.0)
[2023-02-07 13:50] LABS: C REACTIVE PROTEIN QUANTITATIV < 0.40 MG/DL (<1.0)
[2023-02-07 13:51] LABS: IMMUNOGLOBULIN A 101.8 MG/DL (40-350); IRON (FE) 73 UG/DL (50-170); PERCENT SATURATION 23.3 % (13.2-45.0); TOTAL IRON BINDING CAPACITY 313 UG/DL (250-425)
[2023-02-07 13:52] LABS: ALBUMIN 4.1 G/DL (3.2-5.2); ALKALINE PHOSPHATASE 157 U/L (46-116); ALT/SGPT 26 U/L (7.0-40); AST/SGOT 21 U/L (<34); BILIRUBIN,TOTAL 0.5 MG/DL (0.3-1.2); BLOOD UREA NITROGEN 19 MG/DL (9-23); CALCIUM LEVEL 9.4 MG/DL (8.3-10.6); CARBON DIOXIDE LEVEL 29 MMOL/L (20-31); CHLORIDE LEVEL 105 MMOL/L (98-107); CREATININE FOR GFR 0.75 MG/DL (0.55-1.30); GLOMERULAR FILTRATION RATE > 60.0 (>45); GLUCOSE, FASTING 93 MG/DL (74-106); SODIUM LEVEL 141 MMOL/L (136-145); TOTAL PROTEIN 6.7 G/DL (5.7-8.2)
[2023-02-07 13:53] LABS: FERRITIN 66.5 NG/ML (7.3-270.7)
[2023-02-08 23:10] LABS: ALPHA 1 ANTITRYPSIN 149 mg/dL (101-187); ANTI DOUBLE STRAND-DNA AB <1 IU/mL (0-9); ANTI-MITOCHONDRIAL ANTIBODY <20.0 Units (0.0-20.0); ANTINUCLEAR ANTIBODIES DIRECT Positive (Negative); LIVER-KIDNEY MICROSOMAL ABY <20.1 Units (0.0-20.0); RNP ANTIBODIES <0.2 AI (0.0-0.9); SJOGREN'S ANTI SS-A 1.8 AI (0.0-0.9); SJOGREN'S ANTI SS-B <0.2 AI (0.0-0.9); SMITH ANTIBODIES <0.2 AI (0.0-0.9); TISSUE TRANSGLUTAMINASE IgA <2 U/mL (0-3)
== END ==
LOC: M LAB 12:32
PROVIDERS: ATTEND Internal Medicine Gastroenterology
DX: R94.5 Abnormal results of liver function studies (principal)

== ENCOUNTER → 2023-03-31 | Outpatient (CLI) | payer BC | LOC: M WHC 08:08 | DX: N95.0 Postmenopausal bleeding (principal) ==

== ENCOUNTER → 2024-04-19 | Outpatient (CLI) | payer BC | LOC: M RAD 16:41 | PROVIDERS: ATTEND Family Medicine | DX: Z12.2 Encounter for screening for malignant neoplasm of respiratory organs (principal); F17.200 Nicotine dependence, unspecified, uncomplicated; J98.11 Atelectasis ==

== ENCOUNTER → 2024-05-29 | Outpatient (REF) | payer BC ==
[2024-05-29 11:29] LABS: BASO # 0.1 10^3/uL (0.0-0.2); BASO % 1.2 % (0.0-1.0); EOS # 1.1 10^3/uL (0.0-0.5); EOS % 15.2 % (0.0-3.0); HEMATOCRIT 42.4 % (36.0-47.0); LYMPH # 2.4 10^3/uL (1.5-5.0); MEAN CORPUSCULAR HEMOGLOBIN 32.1 pg (27.0-33.0); MEAN CORPUSCULAR VOLUME 97.2 fl (80.0-96.0); MONO # 0.6 10^3/uL (0.0-0.8); MONO % 7.6 % (2.0-8.0); NEUTROPHILS # 3.3 10^3/uL (1.5-8.5); NEUTROPHILS % 43.6 % (36.0-66.0); PLATELET COUNT, AUTOMATED 275 10^3/uL (150-450); RED BLOOD COUNT 4.36 10^6/uL (4.00-5.40); WHITE BLOOD COUNT 7.5 10^3/uL (4.0-10.0)
[2024-05-29 11:34] LABS: ALBUMIN 4.3 G/DL (3.2-5.2); ALKALINE PHOSPHATASE 87 U/L (35-104); ALT/SGPT 20 U/L (7.0-40); AST/SGOT 17 U/L (<34); BILIRUBIN,TOTAL 0.5 MG/DL (0.3-1.2); BLOOD UREA NITROGEN 19 MG/DL (9-23); CARBON DIOXIDE LEVEL 29 MMOL/L (20-31); CHLORIDE LEVEL 105 MMOL/L (98-107); CHOLESTEROL LEVEL 175 MG/DL (<200); CHOLESTEROL RISK RATIO 2.05 (<5); CREATININE FOR GFR 0.91 MG/DL (0.55-1.30); FREE T4 0.96 NG/DL (0.89-1.76); GLOMERULAR FILTRATION RATE > 60.0 (>45); GLUCOSE, FASTING 89 MG/DL (74-106); HDL CHOLESTEROL 85.2 MG/DL (>40); LDL CHOLESTEROL 74.2 MG/DL (<100); NON-HDL-C 89.8 MG/DL; POTASSIUM SERUM 3.9 MMOL/L (3.5-5.1); SODIUM LEVEL 139 MMOL/L (136-145); THYROID STIMULATING HORMONE 5.116 uIU/ML (0.55-4.78); TOTAL PROTEIN 7.6 G/DL (5.7-8.2); TRIGLYCERIDES LEVEL 78 MG/DL (<150)
[2024-05-29 11:35] LABS: VITAMIN B12 LEVEL 302 PG/ML (211-911)
[2024-05-29 11:38] LABS: FOLATE > 24.0 NG/ML (>5.4)
== END ==
LOC: M SFHCCLAY 08:12
PROVIDERS: ATTEND Physician Assistant Medical
DX: E53.8 Deficiency of other specified B group vitamins (principal); E03.9 Hypothyroidism, unspecified; E78.5 Hyperlipidemia, unspecified

== ENCOUNTER → 2024-06-24 | Outpatient (CLI) | payer BC | LOC: M WHC 07:58 | PROVIDERS: ATTEND Physician Assistant Medical | DX: Z12.31 Encounter for screening mammogram for malignant neoplasm of breast (principal); R92.333 Mammographic heterogeneous density, bilateral breasts; R92.1 Mammographic calcification found on diagnostic imaging of breast ==

== ENCOUNTER → 2024-09-05 | Outpatient (REF) | payer BC ==
[2024-09-05 12:48] LABS: THYROID STIMULATING HORMONE 0.612 uIU/ML (0.55-4.78)
[2024-09-05 12:49] LABS: FREE T4 1.21 NG/DL (0.89-1.76)
== END ==
LOC: M SFHCCLAY 08:17
PROVIDERS: ATTEND Physician Assistant Medical
DX: E03.9 Hypothyroidism, unspecified (principal)

== ENCOUNTER → 2025-05-30 | Outpatient (REF) | payer BC ==
[2025-05-30 16:32] LABS: BASO # 0.1 10^3/uL (0.0-0.2); BASO % 1.3 % (0.0-1.0); EOS # 1.4 10^3/uL (0.0-0.5); LYMPH # 2.0 10^3/uL (1.5-5.0); LYMPH % 36.9 % (24.0-44.0); MONO # 0.5 10^3/uL (0.0-0.8); MONO % 9.4 % (2.0-8.0); NEUTROPHILS # 1.5 10^3/uL (1.5-8.5); NEUTROPHILS % 27.6 % (36.0-66.0); PLATELET COUNT, AUTOMATED 272 10^3/uL (150-450)
[2025-05-30 16:33] LABS: EOS % 24.6 % (0.0-3.0)
[2025-05-30 16:53] LABS: ALT/SGPT 13 U/L (7.0-40); AST/SGOT 18 U/L (<34); CALCIUM LEVEL 9.2 MG/DL (8.3-10.6); CARBON DIOXIDE LEVEL 30 MMOL/L (20-31); CHLORIDE LEVEL 107 MMOL/L (98-107); CREATININE FOR GFR 0.85 MG/DL (0.55-1.30); GLOMERULAR FILTRATION RATE 77.4 (>45); POTASSIUM SERUM 4.6 MMOL/L (3.5-5.1); RHEUMATOID FACTOR QUANT < 3.5 IU/ML (<14); SODIUM LEVEL 141 MMOL/L (136-145)
[2025-05-30 16:59] LABS: VITAMIN B12 LEVEL 349 PG/ML (211-911)
== END ==
LOC: M LAB REF 15:04
PROVIDERS: ATTEND Psychiatry & Neurology Neurology
DX: E03.9 Hypothyroidism, unspecified (principal)

== ENCOUNTER → 2025-05-30 | Outpatient (REF) | payer BC ==
[2025-05-30 15:13] LABS: ALT/SGPT 13 U/L (7.0-40); AST/SGOT 19 U/L (<34); CALCIUM LEVEL 9.2 MG/DL (8.3-10.6); CARBON DIOXIDE LEVEL 30 MMOL/L (20-31); CHLORIDE LEVEL 107 MMOL/L (98-107); CREATININE FOR GFR 0.82 MG/DL (0.55-1.30); GLOMERULAR FILTRATION RATE 80.8 (>45); POTASSIUM SERUM 3.9 MMOL/L (3.5-5.1); SODIUM LEVEL 143 MMOL/L (136-145)
[2025-05-30 15:17] LABS: BASO # 0.1 10^3/uL (0.0-0.2); BASO % 1.3 % (0.0-1.0); EOS # 1.3 10^3/uL (0.0-0.5); FREE T4 1.42 NG/DL (0.89-1.76); LYMPH # 2.1 10^3/uL (1.5-5.0); LYMPH % 37.3 % (24.0-44.0); MONO # 0.5 10^3/uL (0.0-0.8); MONO % 9.0 % (2.0-8.0); NEUTROPHILS # 1.6 10^3/uL (1.5-8.5); NEUTROPHILS % 27.9 % (36.0-66.0); PLATELET COUNT, AUTOMATED 267 10^3/uL (150-450)
[2025-05-30 15:38] LABS: TOTAL 25(OH) VITAMIN D 33.1 NG/ML (20.0-100.0); VITAMIN B12 LEVEL 401 PG/ML (211-911)
[2025-05-30 16:07] LABS: EOS % 24.1 % (0.0-3.0)
== END ==
LOC: M SFHCCLAY 07:13
PROVIDERS: ATTEND Physician Assistant Medical
DX: R41.89 Other symptoms and signs involving cognitive functions and awareness (principal); E03.9 Hypothyroidism, unspecified